=== PATIENT | male | born 1945 | race Caucasian/White ===

== ENCOUNTER 2023-12-01 23:43 | Inpatient (IN) | payer MEDICARE, OTHER, SELFPAY ==
[2023-12-01 19:07] VITALS: BP 154/70; BMI 31.5
--- NOTE | 2023-12-01 20:08 | ED.GENMED ---
History of Present Illness
General
Chief Complaint: Extremity Pain (non-traumatic)
Source: patient
Exam Limitations: none
Time Seen by Provider: 12/01/23 19:32
Travel History
Have you had any contact with someone who has COVID-19?: No
Do you have any symptoms of coronavirus? Fever > 100 degrees, chills, cough, shortness of breath, sore throat, loss of taste or smell, muscle aches, or headache?: No
History of Present Illness
History of Present Illness:
78-year-old male complaining of right arm pain and swelling and left leg swelling. Symptoms started 3 to 4 days ago patient was seen by orthopedics who thought it was arthritis in the shoulder. Seen by dermatology today who started Levaquin.
However patient's daughter is a meat and seafood clerk and after evaluating this was concerned that this might need IV antibiotics and was concerned about a septic arthritis. No fever some chills recently
Past History
Past History
ED Past Medical History: HTN and Hypothyroidism
ED Past Surgical History: Orthopedic and Other (Parathyroid surgery)
Social History
Tobacco: Non-smoker
Alcohol: None
Drug: None
Living: with family
Employment: Other (Part-time)
Review of Systems
Review of Systems
All Other Systems: Not applicable
Constitutional: Reports chills; Denies fever
Respiratory: Reports trouble breathing; Denies cough
Cardiac: Reports no symptoms
ABD/GI: Reports no symptoms
Phy Exam
Physical Exam
Physical Exam:
GENERAL: Alert and oriented in no apparent distress, but minimally tachypneic at rest
EYE: Orbits normal.
NECK: Supple, no significant adenopathy.
ENT: Pharynx without erythema
CARDIAC: Regular rate and rhythm without any obvious murmurs.
LUNGS: Clear breath sounds, however minimally tachypneic at rest
ABDOMEN: Soft, without focal tenderness or distention
NEUROLOGICAL: Alert and oriented , grossly non-focal
SKIN: Warm and dry, mild erythematous hue to the right biceps with mild warmth. Erythema of the left lower extremity greatest near the left first toe. Chronic hyperkeratosis of the left lower extremity
MUSCULOSKELETAL: Significant edema to the left lower extremity and moderate edema to the right arm down and including the hand. Good distal pulses. Does not appear to have pain with right shoulder movement or right elbow movement. Tenderness is
to the right biceps area
PSYCH: Normal and appropriate interaction.
Course
Orders/Labs/Results
Orders:
Orders
12/01/23 19:47
IV Insert/Care/Rem.- Treatment PRN
Pulse Ox/cont/shift [RESP] Urgent
Quantity: 1
12/01/23 19:49
CXR2 [CR Chest - 2 Views ] Urgent
Comment:
Reason For Exam: sob
US Periph Venous LOWER Ext LT Urgent
Comment:
Reason For Exam: swelling redness
US Periph Venous UPPER Ext RT Urgent
Comment:
Reason For Exam: swelling
12/01/23 19:50
EKG [Electrocardiogram (*1)] Urgent
Reason for Study: Palpitations
EKG- Treatment ONCE
12/01/23 19:54
CPK [Creatine Phosphokinase] Urgent
CRP [C-Reactive Protein] Urgent
Complete Blood Count/With Diff Urgent
Comprehensive Metabolic Panel Urgent
ESR [Erythrocyte Sed Rate] Urgent
Lactic Acid Q4H
Comment: CANCEL 2nd LACTIC ACID IF 1st LACTIC ACID IS LESS THAN 2
Blood Culture Q30M
MARYCHUY Source: Blood/Venous
Specimen Description:
Blood Culture Q30M
MARYCHUY Source: Blood/Venous
Specimen Description:
12/01/23 21:57
Vancomycin [Vancocin] 1,500 mg 0.9% Sodium Chloride [Nss] 20 ml 0.9% Sodium Chloride 250 ml [Nss] 250 ml IV NOW
02/15/24 22:11
Aztreonam [Azactam] 2,000 mg IV NOW STA
12/01/23 22:12
NSS 500mL Bolus over 1 hr 0.9% Sodium Chloride 500 ml [Nss] 500 ml IV BOLUS
12/02/23 00:00
Lactic Acid Q4H
Comment: CANCEL 2nd LACTIC ACID IF 1st LACTIC ACID IS LESS THAN 2
Abnormal Lab Results
12/01/23
19:54
WBC 15.9 H 10^3/uL
(4.8-10.8)
RBC 4.11 L 10^6/uL
(4.70-6.10)
Hct 36.9 L %
(39.0-52.0)
MCH 32.8 H pg
(27.0-31.0)
RDW 14.6 H %
(11.5-14.5)
MPV 11.5 H fL
(7.4-10.4)
Abs Immat Gran (auto) 0.3 H 10^3/uL
(0-0.05)
Absolute Neuts (auto) 13.3 H 10^3/uL
(1.4-6.5)
Absolute Lymphs (auto) 0.5 L 10^3/uL
(1.2-3.4)
Absolute Monos (auto) 1.7 H 10^3/uL
(0.1-0.6)
Immature Gran % 1.7 H %
(0-0.5)
Neutrophils % 83.5 H %
(42.2-75.2)
Lymphocytes % 3.3 L %
(20.5-51.1)
Monocytes % 10.9 H %
(1.7-9.3)
ESR 70 H mm/hour
(0-20)
Sodium 132 L mmol/L
(135-145)
Chloride 94 L mmol/L
(98-107)
BUN 88 H mg/dl
(9-20)
Creatinine 2.2 H mg/dL
(0.7-1.3)
Glucose 172 H mg/dl
(70-99)
Calcium 8.0 L mg/dl
(8.4-10.2)
C-Reactive Protein 244.80 H mg/L
(0.0-10.00)
Total Protein 5.7 L g/dl
(6.3-8.2)
Albumin 2.9 L g/dl
(3.5-5.0)
12/01/23 19:54
12/01/23 19:54
Vital Signs
Initial and Last Documented VS:
Initial Vital Signs
Temp Pulse Resp BP Pulse Ox
98.1 F 92 16 154/70 96
12/01/23 19:07 12/01/23 19:07 12/01/23 19:07 12/01/23 19:07 12/01/23 19:07
Last Documented Vital Signs
Temp Pulse Resp BP Pulse Ox
98.1 F 92 16 154/70 96
12/01/23 19:07 12/01/23 19:07 12/01/23 19:07 12/01/23 19:07 12/01/23 19:07
MDM/Problems Addressed
Differential Diagnosis Includes:
Appears to be a cellulitic right lower extremity. Swelling of the right arm with erythema and warmth. DVT of both areas is also a possibility. Doubt septic arthritis. Workup in progress. Warrants IV antibiotics and admission.
*Radiology
Radiology exam reviewed: preliminary read by ED provider (Elevated left hemidiaphragm) and radiology read reviewed (Elevated left hemidiaphragm. Ultrasounds negative)
*Pulse Oximetry
Patient hypoxic: no
*EKG
Interpreted by ED Provider?: Yes
Interpretation: abnormal
Comparison EKG: changes noted
Heart Rate: 87
Rate: normal
Rhythm: sinus
Luning: normal axis
Interval: normal interval
QRS Pattern: right bundle branch block
Ischemia: non-specific ST changes
*Traffic Manager Interpretation
Rate: normal
Interpretation: normal
Heart Rate: 85
Rhythm: sinus
*Critical Care Note
Total Time (30-74mins, 75-104mins- exclusive of procedures): 35
Data Reviewed
Review of Other/Old Records Reveals: Radiology Studies
Update Note
Update Note:
Daughter updated. Multiple issues including dehydration/renal insufficiency, elevated white count with elevated inflammatory markers. Cellulitis of left lower leg and likely the right arm. Patient was reexamined and again clinically this appears
to be the upper arm more than the shoulder. He has no pain with elbow rotation. He winces with pain and moving the arm but is much more the right bicep and not the shoulder.
ED Attending Note
-
Portions of this chart may have been created with voice recognition software.� Occasional wrong word or��sound alike� substitutions may have occurred due to the inherent limitations of voice recognition software.
Discharge Plan
Departure
Patient Disposition: Admit
Date of Disposition: 12/01/23
Time of Disposition: 22:24
Presentation/result/management discussed w/ accepting MD/DO: Hospitalist
Discharge Problem:
Cellulitis left lower extremity, Cellulitis right upper extremity, Possible myositis right arm. Doubt sept, Renal insufficiency
Prescriptions:
No Action
acetaminophen [Tylenol Extra Strength] 500 mg Tablet
1,000 mg PO BIDPRN PRN (Reason: mild pain)
amlodipine 10 mg Tablet
10 mg PO QPM
levofloxacin 750 mg Tablet
750 mg PO QPM
Patient Comments:
12/01/2023, pt. filled this med. on 12/01/2023 and is instructed to take one tablet once a day for 10 days. Pt. took first dose today and has 9 pills remaining.
valsartan-hydrochlorothiazide 320-12.5 mg Tablet
1 tab PO DAILY
Referrals:
James Larsen MD [Family Provider] -
Interventions
Interventions:
*Risk Screen - Suicide Last Done: 12/01/23 20:03
*General Assessment Last Done: 12/01/23 20:03
*Neglect/Abuse Screening Last Done: 12/01/23 19:07
ED- Fall Risk Assessment Last Done: 12/01/23 20:03
*ED COVID-19 Vaccine History Last Done: 12/01/23 19:07
ED-Peripheral Vascular Assessment Last Done: 12/01/23 20:03
ED-Musculoskeletal Assessment Last Done: 12/01/23 20:03
[2023-12-01 20:40] LABS: % Basophils 0.6 % (0-2); % Immature Granulocytes 1.7 % (0-0.5); % Lymphocytes 3.3 % (20.5-51.1); % Monocytes 10.9 % (1.7-9.3); % Neutrophils 83.5 % (42.2-75.2); Absolute Basophils 0.1 10^3/uL (0-0.2); Absolute Immature Granulocytes 0.3 10^3/uL (0-0.05); Absolute Lymphocytes 0.5 10^3/uL (1.2-3.4); Absolute Monocytes 1.7 10^3/uL (0.1-0.6); Absolute Neutrophils 13.3 10^3/uL (1.4-6.5); Hematocrit 36.9 % (39.0-52.0); Hemoglobin 13.5 g/dL (13.0-18.0); Mean Corp Hgb Conc. 36.6 g/dL (33.0-37.0); Mean Corpuscular Hgb 32.8 pg (27.0-31.0); Mean Corpuscular Volume 89.8 fL (80.0-94.0); Mean Platelet Volume 11.5 fL (7.4-10.4); Nucleated Red Blood Cells % 0 % (-); Platelet Count 202 10^3/uL (130-400); Red Blood Cell Count 4.11 10^6/uL (4.70-6.10); Red Cell Dist. Width 14.6 % (11.5-14.5); White Blood Cell Count 15.9 10^3/uL (4.8-10.8)
[2023-12-01 20:51] LABS: Erythrocyte Sed Rate 70 mm/hour (0-20)
[2023-12-01 20:54] LABS: Lactic Acid 1.5 mmol/L (0.7-2.0)
[2023-12-01 21:03] LABS: ALT (SGPT) 31 U/L (0-50); AST (SGOT) 49 U/L (17-59); Albumin 2.9 g/dl (3.5-5.0); Alkaline Phosphatase 80 U/L (38-126); Blood Urea Nitrogen 88 mg/dl (9-20); Carbon Dioxide 25 mmol/L (22-30); Chloride 94 mmol/L (98-107); Estimated Creatinine Clearance 30 ml/min; Glucose 172 mg/dl (70-99); Potassium 3.5 mmol/L (3.5-5.1); Sodium 132 mmol/L (135-145); Total Bilirubin 0.8 mg/dl (0.2-1.3); Total Protein 5.7 g/dl (6.3-8.2); eGFR 29.54
[2023-12-01 21:33] LABS: Creatine Phosphokinase 139 U/L (55-170)
[2023-12-01 22:01] VITALS: BP 125/65
--- NOTE | 2023-12-01 22:15 | HPS.HSE ---
Family Physician
-
Family Physician: James Larsen
Chief Complaint
-
right arm pain and swelling
History of Present Illness
Mr. Ming Gunter is a 78 yo man with hx HTN, Hypothyroidism who presents to the ER with right arm pain and left leg swelling and pain. Patient states his left leg has been red, warm and swollen x almost a week. Tuesday night he went out and
after he returned home he describes severe shakiness/rigors. No rigors since this evening but the following morning he had severe right arm pain and near immobility of right arm. Pain is located along biceps muscle. He saw orthopedics who
injected a steroid into right shoulder. He also saw Dermatology who prescribed Levaquin for the cellulitis. Patient's shutzsto-rz-luh is a inspector and unloader and was worried about a septic joint so sent him to the ER.
Patient denies measured fevers at home. He has been taking advil and tylenol ATC for pain. Denies chest pain, no shortness of breath. No abdominal pain. No nausea/vomiting/diarrhea and no poor appetite.
Medical History
Past Medical History
Past Medical History: Reports HTN and Hypothyroidism
Past Surgical History: Reports Other
Social History
Tobacco: Non-smoker
Alcohol: None
Family History
Family History: Not pertinent
Allergies / Home Medications
Allergies reflects when Allergies were last updated in [facility].
Home Medications with original date entered in [facility]
Allergy/Medication List:
Allergies
Allergy/AdvReac Type Severity Reaction Status Date / Time
Penicillins Allergy Severe Rash Verified 12/01/23 19:12
Home Medications
acetaminophen 500 mg tablet (Tylenol Extra Strength) 1,000 mg PO BIDPRN PRN mild pain 12/01/23
amlodipine 10 mg tablet 10 mg PO QPM 12/01/23
levofloxacin 750 mg tablet 750 mg PO QPM 12/01/23
valsartan 320 mg-hydrochlorothiazide 12.5 mg tablet 1 tab PO DAILY 12/01/23
Review of Systems
-
History Source: Patient
A 12 point ROS was completed and negative except as noted: Yes
Physical Exam
Vital Signs
Vital Signs
Temp Pulse Resp BP Pulse Ox
98.1 F 92 16 154/70 96
12/01/23 19:07 12/01/23 19:07 12/01/23 19:07 12/01/23 19:07 12/01/23 19:07
Physical Exam
General: No Apparent Distress and Conversant
HEENT: PERRLA
Respiratory: Clear; No Wheezes
Cardiac: S1/S2 and Regular Rhythm
GI: Soft and Non Tender
Musculoskeletal: Other (LLE with significant warmth and erythema; swelling up to below knee; right biceps with point tenderness; can slowly flex elbow and shoulder although limited 2/2 pain in bicep - area mildly erythematous not warm)
Skin: Warm and Dry; No Rash
Neuro: AO x 3
Psych: Calm
Laboratory Results
-
12/01/23 19:54
12/01/23 19:54
Laboratory Results
Lactic Acid 1.5 mmol/L (0.7-2.0) 12/01/23 19:54
Total Bilirubin 0.8 mg/dl (0.2-1.3) 12/01/23 19:54
AST 49 U/L (17-59) 12/01/23 19:54
ALT 31 U/L (0-50) 12/01/23 19:54
Alkaline Phosphatase 80 U/L (38-126) 12/01/23 19:54
Data Reviewed
-
Diagnostic Radiology: Report Reviewed by me
Lab Data: Labs Reviewed by me
Impression/Plan
-
Mr. Ming Gunter is a 78 yo man with hx HTN, Hypothyroidism who presents to the ER with right arm and left leg swelling.
Triage VS: T 98.1, P 92 RR 16, BP 154/70, SpO2 96%
LABS: WBC 15.9, Hg 13.5, PLT 202, Na 132, Cl 94, BUN 88, Cr 2.2, Glucose 172
CRP 244
LLE US
IMPRESSION: No evidence of deep venous thrombosis left lower extremity.
Two morphologically unremarkable appearing left groin lymph nodes, as detailed above.
RUE US
IMPRESSION:
No evidence of deep venous thrombosis of the right upper extremity.
CXR
IMPRESSION:
Low lung volumes.
Elevation of left hemidiaphragm.
No acute cardiopulmonary process.
MAR: IV Vanc/Aztreonam
Sepsis 2/2 LLE Cellulitis
-admit to med/surg
-IV Vanc/Cefazolin
-LLE leg elevation
-would repeat CRP and ESR in 48 hours given significant elevation. No e/o septic joint (no significant knee pain or tenderness; no shoulder or elbow tenderness to palpation)
-F/U blood cultures
-IVF
Right arm pain - point tenderness along biceps
-possible that patient injured muscle during period of uncontrollable rigors described? (given pain started next morning). area does not appear infected
-will obtain x-rays of shoulder and elbow given immobility
-lidocaine patch to area
-ortho consult - need for further imaging?
LONDON on CKD III
-in setting of frequent NSAID use and valsartan/HCTZ + sepsis
-IVF as above
-hold NSAIDs
-F/U UA and urine studies
-hold MATE CHIEF Valsartan/HCTZ
Essential HTN
-MATE CHIEF amlodipine
-hold MATE CHIEF Valsartan-HCTZ given LONDON
DVT PPx hep subQ
FULL CODE
[2023-12-01] MEDS: VANCOCIN 300 MG IV (22:16)
[2023-12-01] MEDS: VANCOCIN 300 ML IV (22:16)
[2023-12-01] MEDS: NSS 500 IV (22:21)
[2023-12-01 23:00] VITALS: BP 125/64
[2023-12-02 00:41] LABS: Urine Albumin Negative (Neg - Trace); Urine Bilirubin Negative (Negative); Urine Character Clear (Clear); Urine Color Yellow; Urine Glucose Negative (Negative); Urine Ketone Negative (Negative); Urine Leukocyte Negative (Negative); Urine Nitrite Negative (Negative); Urine Occult Blood Negative (Negative); Urine Urobilinogen Negative (Neg - 1+)
[2023-12-02 00:55] VITALS: BP 147/90
[2023-12-02 00:58] LABS: Urine Sodium 30 mmol/L (30-90)
[2023-12-02] MEDS: ANCEF 10 IV ×3 (01:07→23:43)
[2023-12-02] MEDS: LR 1000 IV ×3 (02:14→23:43)
[2023-12-02 05:36] VITALS: BMI 32.4
[2023-12-02 06:16] LABS: % Basophils 0.4 % (0-2); % Immature Granulocytes 1.9 % (0-0.5); % Monocytes 13.1 % (1.7-9.3); % Neutrophils 80.6 % (42.2-75.2); Absolute Basophils 0.1 10^3/uL (0-0.2); Absolute Immature Granulocytes 0.3 10^3/uL (0-0.05); Absolute Lymphocytes 0.6 10^3/uL (1.2-3.4); Absolute Monocytes 1.9 10^3/uL (0.1-0.6); Absolute Neutrophils 11.7 10^3/uL (1.4-6.5); Hematocrit 33.9 % (39.0-52.0); Hemoglobin 12.4 g/dL (13.0-18.0); Mean Corp Hgb Conc. 36.6 g/dL (33.0-37.0); Mean Corpuscular Hgb 33.1 pg (27.0-31.0); Mean Corpuscular Volume 90.4 fL (80.0-94.0); Mean Platelet Volume 11.3 fL (7.4-10.4); Nucleated Red Blood Cells % 0 % (-); Platelet Count 181 10^3/uL (130-400); Red Blood Cell Count 3.75 10^6/uL (4.70-6.10); Red Cell Dist. Width 14.5 % (11.5-14.5); White Blood Cell Count 14.5 10^3/uL (4.8-10.8)
[2023-12-02 06:45] LABS: Blood Urea Nitrogen 87 mg/dl (9-20); Calcium 7.7 mg/dl (8.4-10.2); Carbon Dioxide 23 mmol/L (22-30); Chloride 99 mmol/L (98-107); Estimated Creatinine Clearance 35 ml/min; Glucose 176 mg/dl (70-99); Magnesium 2.6 mg/dl (1.6-2.3); Potassium 3.5 mmol/L (3.5-5.1); Sodium 134 mmol/L (135-145); eGFR 35.22
[2023-12-02 07:20] VITALS: BP 155/88
--- NOTE | 2023-12-02 07:45 | PHA.VAN.IN ---
Assessment
- Assessment
Renal Function: Unknown baseline
Concomitant Antimicrobials: cefazolin
Plan
- Plan
Initial / Loading Dose: 1500mg - 12/01 22:16
Maintenance Regimen: dosing by level - give 750mg x1 today to maintain levels
Monitoring: random 12/03 0600
Pharmacokinetics Vancomycin I
- -
Patient Age: 78
Patient Sex: Male
Vancomycin Day #: 1
Indication: Skin And Soft Tissue
Requesting Provider: Dr. Brooks
Pertinent Antimicrobial Allergies:
Penicillins - rash
Height / Weight:
Height 5 ft 8 in
Actual Weight 96.757 kg
Pertinent Past Medical History: BMI ~32
- Vital Signs / Lab Results
Temp Pulse Resp BP Pulse Ox
97.7 F 93 16 147/90 96
12/02/23 00:55 12/02/23 00:55 12/02/23 00:55 12/02/23 00:55 12/02/23 00:55
Lab Results - Hematology
12/01/23 12/02/23
19:54 05:51
WBC 15.9 H 14.5 H
Lab Results - Chemistry
12/01/23 12/02/23
19:54 05:51
BUN 88 H 87 H
Creatinine 2.2 H 1.9 H
Estimated Creat Clear 30 35
Albumin 2.9 L
12/01/23
19:54
Lactic Acid 1.5
Lab Results - Urine
12/02/23
00:25
Urine Nitrite Cancelled
Urine Nitrite (Reflex) Negative
Ur Leukocyte Esterase Cancelled
Leukocyte Esterase Rfl Negative
[2023-12-02] MEDS: VANCOCIN 150 IV (09:18)
[2023-12-02] MEDS: LIDOCAINE 4% PATCH 1 PATCH TOPICAL ×2 (09:23→12:26)
--- NOTE | 2023-12-02 10:41 | CON.ORTHO ---
Consultation
-
Date/Time Consultation Requested: 12/02/2023 830 AM
Date/Time Consultation Performed: 12/02/2023 10 AM
Requesting Provider: Primary
Performing Provider: Any
Reason for Consultation: Right arm pain
Consultation - Orthopedics
History
HPI :78-year-old male presented to the the [facility] emergency department with complaints of right arm pain as well as left lower extremity swelling erythema. Patient does have a known history of right glenohumeral osteoarthritis. He reports that last
weekend he developed some chills without associated fevers. He did note some rigors that he thinks exacerbated his right shoulder pain. On Tuesday he was seen by his orthopedist who did perform an intra-articular right glenohumeral corticosteroid
injection. He reports that after the injection he did experience worsening shoulder pain. He was subsequently seen by his junior sales representative for left lower extremity redness and swelling that has been ongoing since September. Patient was placed on
Levaquin. He does report that his peyylzge-nu-aib is a pot room tapper and suggested that he present to the emergency department for IV antibiotics. Today patient reports pain well localized to the lateral aspect of his shoulder and upper arm. He
does note some redness more distally upper extremity some associated swelling that he does think is actually improved since starting IV antibiotics. Pain is made worse with any motion of his right shoulder and really has significant difficulty with
any motion particularly forward flexion of his shoulder. Reports that previous shoulder pain has never been this severe. Denies any fevers at home.
Allergies / Home Medications
Past medical history: Hypertension, hypothyroidism
Past surgical history: Orthopedic, parathyroid surgery
Family history: Not pertinent
Social history: Smoker, non-smoker
Allergy/AdvReac Type Severity Reaction Status Date / Time
Penicillins Allergy Rash Verified 12/01/23 23:17
Medication Instructions Recorded
acetaminophen 500 mg tablet 1,000 mg PO BIDPRN PRN mild pain 12/01/23
(Tylenol Extra Strength)
amlodipine 10 mg tablet 10 mg PO QPM Blood Pressure 12/01/23
calcium 100 mg capsule mg PO Supplement 12/01/23
levofloxacin 750 mg tablet 750 mg PO QPM Infection 12/01/23
valsartan 320 1 tab PO DAILY Blood Pressure 12/01/23
mg-hydrochlorothiazide 12.5 mg
tablet
Vital Signs / Lab Results
Temp Pulse Resp BP Pulse Ox
98.2 F 87 18 155/88 95
12/02/23 07:20 12/02/23 07:20 12/02/23 07:20 12/02/23 07:20 12/02/23 10:04
12/02/23 05:51
12/02/23 05:51
10 point review systems reviewed and negative unless otherwise stated
General: Seated comfortably in chair at rest, no visible discomfort at rest
Musculoskeletal right upper extremity
There is some mild erythematous skin changes over the antecubital fossa with some associated mild to moderate swelling throughout his right upper extremity
No tenderness palpation of antecubital fossa
Significant tenderness to palpation over proximal arm and shoulder
Significant pain with any attempted passive motion both forward flexion external rotation of shoulder
Unable to actively forward flex or externally rotate without significant pain
Sensations intact light touch in all dispositions distally
Brisk cap refill
Diagnostic studies
X-rays of right shoulder reviewed show significant joint space narrowing, humeral head osteophyte formation with associated subchondral sclerosis glenohumeral joint space. X-rays of right elbow show no fracture dislocations. Negative posterior fat
pad sign
Assessment / Plan
78-year-old male with atraumatic onset right shoulder pain in setting of known right glenohumeral osteoarthritis. Does report that his symptoms actually worsened quite significantly following his corticosteroid injection on Tuesday. Patient is not
complaining of any pain clinically in the area of his elbow today. I would have concerns about potentially ruling out right shoulder septic arthritis given his elevated inflammatory markers as well as his clinical examination and the fact that his
symptoms worsened following recent injection right shoulder. Would recommend obtaining ultrasound-guided evaluation of the right shoulder to evaluate for effusion with aspiration if indicated with synovial fluid analysis hopefully synovial fluid
analysis would help us rule out a septic joint. Will plan to reach out to interventional radiology and discuss further with primary team. IV antibiotics for cellulitis per primary team/infectious disease recommendations.
--- NOTE | 2023-12-02 10:45 | W.PN.HOSP.TC ---
Today's Communication/Plan
-
see outlined plan
Assessment / Plan
Assessment / Plan
Assessment:
Sepsis POA
RUE cellulitis, possible septic R shoulder joint
Also LLE cellulitis, chronic xerosis
- CRP elevated; will trend
- recent CS injection on Tuesday at R shoulder
- ortho evaluated, d/w IR and for joint aspiration/cultures today
- ID consult
- continue IV Vanco/Ancef and follow cultures
- for LLE: elevate legs
- wound care evaluation
- was prescribed Clobetasol (+ Levaquin) for LLE cellulitis by derm, hold off with active infection until cleared by ID/Wound care. May benefit from Aquaphor
- pain control; lidocaine patches, prn tramadol
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
- likely from heavy NSAID usage outpatient
- hold nephrotoxins
- continue IVF
- monitor Cr
Essential HTN
- continue CCB
- hold ARB/HCTZ; use BB if needed
DVT ppx: SC Heparin
Code: Full
Anticipated Discharge: > 48 hours
Subjective/Interval History
-
Date of Service: December 02, 2023
reports arm pain, swelling
no fever/chills
Objective Data
-
Labs:
Laboratory Results
12/02/23
05:51
WBC 14.5 H
Hgb 12.4 L
Hct 33.9 L
Plt Count 181
Sodium 134 L
Potassium 3.5
Chloride 99
Carbon Dioxide 23
BUN 87 H
Creatinine 1.9 H
Glucose 176 H
Calcium 7.7 L
Vital Signs:
Vital Signs
Temp Pulse Resp BP Pulse Ox
98.2 F 87 18 155/88 95
12/02/23 07:20 12/02/23 07:20 12/02/23 07:20 12/02/23 07:20 12/02/23 10:04
I&O
12/01/23 12/02/23 12/03/23
06:59 06:59 06:59
Intake Total 600 / 600
Output Total 750 / 750
Balance -150 / -150
Physical Exam
-
General: No Apparent Distress
HEENT: Normocephalic and Atraumatic
Respiratory: Negative Wheezes or Rales
Cardiac: Regular Rhythm and S1/S2
GI: Soft
Genito-urinary: No Costovertebral Tender
Musculoskeletal: Other (RUE arm pain, swelling, redness, limited ROM in R shoulder)
Neuro: AO x 3
Psych: Calm
Data Reviewed
-
Total Time Spent with Patient (in minutes): 45
Labs: Labs Reviewed by me
[2023-12-02 11:00] VITALS: BP 132/66
--- NOTE | 2023-12-02 11:18 | CM ---
Reviewed the chart notes and spoke with the patient at the bedside. The patient resides with his spouse in a condo with elevator access to all floors. The patient reports no DME/VN/SNF in the past. The patient confirmed his pharmacy of choice is
the [facility]. CM continues to be available to patient/family and is monitoring medical plan for needs at discharge.
Plan: Discharge plans will depend on the patient's progress.
--- NOTE | 2023-12-02 11:58 | WOUNDNOTE ---
LLE (ANTERIOR LATERAL)
--- NOTE | 2023-12-02 11:59 | WOUNDNOTE ---
LLE (ANTERIOR MEDIAL)
--- NOTE | 2023-12-02 12:00 | WOUNDNOTE ---
[facility] RN note: Patient admitted with extremity pain, LONDON, R arm pain, LLE swelling and pain. Patient had a recent steroid injection RUE and recently saw derm who ordered Levaquin for LLE cellulitis.
See H&P for complete history.
PMH: CKD3, HTN, osteoarthritis, venous stasis.
Wound Location and type/assessment: Patient admitted with: Dry scaly skin Le's (L>R), skin about to weep at L medial anterior ankle area. +LE edema (L>R). Pedal pulses heard easily with portable Doppler. LLE venous Doppler negative for DVT. RUQ
venous Doppler negative for DVT. Coccyx crease MASD. ID, Ortho and IR on consult.
Appetite: good.
Pressure redistribution devices in place: [employer] Accumax. Patient moves self slowly.
Plan: Cleansed LLE with saline and applied Vaseline to dry skin le's. Discussed with Dr. Dixon who approved Aquaphor ointment and bilateral knee high compression with Tubigrip with Mando wrap on top. Dr. Dixon to apply compression after seeing
patient. Supplies left in room. Discussed with EDDY Huynh.
Care plan to be updated and will follow as needed.
Note to case management of equipment requested for discharge: VN if patient wants.
--- NOTE | 2023-12-02 13:43 | CON.ID ---
Consultation
-
Date/Time Consultation Requested: 12/02/2023 07:37
Date/Time Consultation Performed: 12/02/2023 1320
Requesting Provider: Dr. Armando
Performing Provider: Dr. Dixon
Reason for Consultation: Cellulitis, leukocytosis
Chief Complaint / Past History
History of Present Illness
Ming Gunter is an 78-year-old man being evaluated at the request of Dr. Armando in regards to cellulitis and leukocytosis. History is obtained from chart review, along with patient interview. The patient reports that he has had several weeks of
lower extremity swelling, but seem to increase markedly over the past week. He reports approximately 6 days ago he developed the acute onset of chills and rigors. The following day he felt improved but extremely fatigued. He was in to see his
orthopedist approximately 4 days ago and because of concerns for osteoarthritis of the right shoulder joint, he received a steroid injection. Following this he had ongoing pain and swelling of the arm, along with ongoing swelling of the left leg.
He was seen by his Gun Stock Checker, who placed him on ofloxacin. His daughter who is a learning support aide saw him, was concerned that there was a deeper seeded infection and advised coming to the emergency room.
Patient denies any fevers during this time period. He has had no chills since earlier in the week. Currently he notes marked pain with any movement of the right upper extremity, especially in the bicep area.
Past History
Additional Past Medical History:
HTN
Hypothyroidism
Vocal cord cancer
Additional Past Surgical History:
Wrist surgery
Vocal cord surgery
Allergy History:
- Penicillins Allergy (Verified 12/01/23 23:17)
?Rash. Has tolerated amoxicillin and Keflex without issue.
Medications Reviewed: Yes
Current Antibiotics:
Vancomycin
Cefazolin
Social History
Tobacco: Non-Smoker
Alcohol: None
Drug: None
Living: With Family
Employment: Employed
Review of Systems
Vital Signs
Temp Pulse Resp BP Pulse Ox
98.2 F 87 18 155/88 95
12/02/23 07:20 12/02/23 07:20 12/02/23 07:20 12/02/23 07:20 12/02/23 10:04
Physical Exam
Physical Exam
Constitutional: No Acute Distress, Comfortable and Non-toxic
Eyes: No Conjunctival Hemorrhage and Sclera Anicteric
Oral: No Thrush and No Ulcers
Cardiovascular: S1/S2; Negative S3/S4 or Murmur
Pulmonary: Non Labored
Gastrointestinal: Soft, Non Tender, Non Distended and Normal Bowel Sounds
Genito-Urinary: Negative West
Extremities: Edema (Right upper extremity, shoulder to mid forearm, with noted tenderness in the upper arm area. Mild erythema noted. Also with 4+ edema of the left lower extremity, 3+ edema of the right lower extremity) and Erythema
Neurological: Awake and Alert
Psychological: Calm
.
Lab / Diagnostic Study Results
12/02/23 05:51
12/02/23 05:51
Abs Immat Gran (auto) 0.3 10^3/uL (0-0.05) H 12/02/23 05:51
Absolute Neuts (auto) 11.7 10^3/uL (1.4-6.5) H 12/02/23 05:51
Absolute Lymphs (auto) 0.6 10^3/uL (1.2-3.4) L 12/02/23 05:51
Absolute Monos (auto) 1.9 10^3/uL (0.1-0.6) H 12/02/23 05:51
Absolute Basos (auto) 0.1 10^3/uL (0-0.2) 12/02/23 05:51
Immature Gran % 1.9 % (0-0.5) H 12/02/23 05:51
Neutrophils % 80.6 % (42.2-75.2) H 12/02/23 05:51
Lymphocytes % 4.0 % (20.5-51.1) L 12/02/23 05:51
Monocytes % 13.1 % (1.7-9.3) H 12/02/23 05:51
Eosinophils % 0.0 % (0-6) 12/02/23 05:51
Basophils % 0.4 % (0-2) 12/02/23 05:51
ESR 70 mm/hour (0-20) H 12/01/23 19:54
Lactic Acid 1.5 mmol/L (0.7-2.0) 12/01/23 19:54
C-Reactive Protein 244.80 mg/L (0.0-10.00) H 12/01/23 19:54
Microbiology Results
Micro:
12/01/23 19:54 Blood Culture - Pending
Blood/Venous
12/01/23 19:54 Blood Culture - Pending
Blood/Venous
Imaging:
12/01/2023 Duplex ultrasound left lower extremity, right upper extremity: No evidence of DVT noted.
Assessment / Plan
Right upper extremity pain, swelling; ?cellulitis and/or myositis
Leukocytosis
Severe left lower extremity edema +/- cellulitis
Renal insufficiency
HTN
Hypothyroidism
Vocal cord cancer
Recommendations:
Continue with vancomycin and cefazolin for the present.
Follow white count and temperature curve.
Follow right upper extremity swelling and degree of pain.
Depending on clinical course, may need additional imaging (i.e. CT VS MRI), especially if pain and swelling persist.
Care Review
Plan reviewed with: Physician (Hospitalist)
[2023-12-02 15:22] VITALS: BP 149/81
--- NOTE | 2023-12-02 16:42 | PTCARENOTE ---
pt sent to [facility] via stretcher to have fluid drawn from R shoulder. pt sent with LR going at 100ml/hr. this nurse applied b/l tubi supercharger mechanic E and F as well as cammie wraps prior to patient going down to [facility]. pt and updated on patient plan at this time
[2023-12-02 16:45] VITALS: BP 155/73; BP_SYST 83
[2023-12-02] MEDS: NORVASC 10 MG PO (18:18)
[2023-12-02] MEDS: HEPARIN 5000 UNITS SC (20:57)
[2023-12-02] MEDS: DESENEX/MITRAZOL/ZEASORB 1 APPLIC TOPICAL (20:57)
[2023-12-02 23:25] VITALS: BP 132/66
[2023-12-03] MEDS: TYLENOL 650 MG PO (02:49)
[2023-12-03 07:53] VITALS: BP 149/71
[2023-12-03] MEDS: LIDOCAINE 4% PATCH 1 PATCH TOPICAL (08:10)
[2023-12-03] MEDS: HEPARIN 5000 UNITS SC ×2 (08:11→20:16)
[2023-12-03] MEDS: LR 1000 IV (08:14)
[2023-12-03] MEDS: HYDROPHOR 1 APPLIC TOPICAL (08:22)
[2023-12-03] MEDS: DESENEX/MITRAZOL/ZEASORB 1 APPLIC TOPICAL ×2 (08:22→20:19)
[2023-12-03 08:32] LABS: % Basophils 0.4 % (0-2); % Immature Granulocytes 3.2 % (0-0.5); % Lymphocytes 6.1 % (20.5-51.1); % Neutrophils 79.3 % (42.2-75.2); Absolute Basophils 0.1 10^3/uL (0-0.2); Absolute Immature Granulocytes 0.4 10^3/uL (0-0.05); Absolute Lymphocytes 0.7 10^3/uL (1.2-3.4); Absolute Monocytes 1.3 10^3/uL (0.1-0.6); Absolute Neutrophils 9.6 10^3/uL (1.4-6.5); Hematocrit 36.4 % (39.0-52.0); Hemoglobin 12.9 g/dL (13.0-18.0); Mean Corp Hgb Conc. 35.4 g/dL (33.0-37.0); Mean Corpuscular Hgb 32.7 pg (27.0-31.0); Mean Corpuscular Volume 92.2 fL (80.0-94.0); Mean Platelet Volume 10.9 fL (7.4-10.4); Nucleated Red Blood Cells % 0 % (-); Platelet Count 191 10^3/uL (130-400); Red Blood Cell Count 3.95 10^6/uL (4.70-6.10); Red Cell Dist. Width 14.4 % (11.5-14.5); White Blood Cell Count 12.1 10^3/uL (4.8-10.8)
[2023-12-03 08:48] LABS: Blood Urea Nitrogen 70 mg/dl (9-20); Carbon Dioxide 24 mmol/L (22-30); Chloride 102 mmol/L (98-107); Estimated Creatinine Clearance 44 ml/min; Glucose 146 mg/dl (70-99); Potassium 3.9 mmol/L (3.5-5.1); Sodium 137 mmol/L (135-145); eGFR 46.77
--- NOTE | 2023-12-03 09:11 | W.PN.ID1 ---
Date of Service
Date of Service: December 03, 2023
Today's Communication
Continue antibiotics. Check MRI
Assessment / Plan
Right upper extremity pain, swelling; ?cellulitis and/or myositis
Leukocytosis
Severe left lower extremity edema
Renal insufficiency
HTN
Hypothyroidism
Vocal cord cancer
Recommendations:
Continue with vancomycin and cefazolin for the present.
Follow white count and temperature curve.
Follow right upper extremity swelling and degree of pain.
Given ongoing pain, would recommend MRI of the shoulder and upper arm.
����������������������������������������������������������
Chief Complaint
-: Cellulitis
Subjective / Review of Systems
Patient seen and examined. Reports ongoing right upper extremity discomfort/pain, finding it difficult to even move his arm. He localizes pain to the bicep area. No fevers or chills.
Review of Systems: No Fever and No Chills
Vital Signs / Physical Exam
Vital Signs
Vital Signs
Temp Pulse Resp BP Pulse Ox
98.5 F 83 16 149/71 98
12/03/23 07:53 12/03/23 07:53 12/03/23 07:53 12/03/23 07:53 12/03/23 07:53
Physical Exam
Constitutional: No Acute Distress, Comfortable and Non-toxic
Cardiovascular: S1/S2; Negative S3/S4
Pulmonary: Non Labored
Gastrointestinal: Soft
Extremities: Edema (Left upper extremity) and Erythema (Right upper extremity; minimal)
Musculoskeletal: Negative Joint Swelling
Neurological: Awake, Alert and Oriented
Objective Data
Lab Data
Lab Results
12/03/23 07:41
12/03/23 07:41
ESR 70 mm/hour (0-20) H 12/01/23 19:54
Estimated Creat Clear 44 ml/min 02/17/24 07:41
Lactic Acid 1.5 mmol/L (0.7-2.0) 12/01/23 19:54
Total Bilirubin 0.8 mg/dl (0.2-1.3) 12/01/23 19:54
AST 49 U/L (17-59) 12/01/23 19:54
ALT 31 U/L (0-50) 12/01/23 19:54
Alkaline Phosphatase 80 U/L (38-126) 12/01/23 19:54
C-Reactive Protein 244.80 mg/L (0.0-10.00) H 12/01/23 19:54
Most recent labs reviewed.
Micro Results:
12/01/23 19:54 Blood Culture - Preliminary
Blood/Venous No Growth in 24 hours- Final report to follow
12/01/23 19:54 Blood Culture - Preliminary
Blood/Venous No Growth in 24 hours- Final report to follow
12/02/23 17:31 Body Fluid Culture - Pending
Joint Fluid Gram Stain - Preliminary
Imaging:
12/01/2023 Duplex ultrasound left lower extremity, right upper extremity: No evidence of DVT noted.
Care Review
Plan reviewed with: Physician (Hospitalist)
[2023-12-03 09:28] LABS: Vancomycin Random 7.9 ug/ml
--- NOTE | 2023-12-03 11:16 | W.PN.HOSP.TC ---
Today's Communication/Plan
-
MRI today d/w ID and ortho
updated family
Assessment / Plan
Assessment / Plan
Assessment:
Sepsis POA
RUE cellulitis, possible septic R shoulder joint vs R biceps myositis vs abscess
- recent CS injection on Tuesday at R shoulder
- CRP/ESR elevated; will trend
- ortho following
- s/p IR shoulder aspiration on 12/02. Follow GS/Cx
- ID following
- continue IV Vanco/Ancef and follow cultures
- given persistence of symptoms, check MRI study w contrast
- pain control; lidocaine patches, prn tramadol
Also LLE cellulitis, chronic xerosis
- ID/wound care following
- continue IV Vanco/Ancef and follow cultures
- continue Aquaphor
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
- likely from heavy NSAID usage outpatient
- hold nephrotoxins
- continue IVF
- monitor Cr, down to 1.5
Essential HTN
- continue CCB
- hold ARB/HCTZ; use BB if needed
DVT ppx: SC Heparin
Code: Full
Anticipated Discharge: > 48 hours
Subjective/Interval History
-
Date of Service: December 03, 2023
reports ongoing pain, 06/26, with movement of shoulder which remains swollen
no fevers/chills
Objective Data
-
Labs:
Laboratory Results
12/03/23
07:41
WBC 12.1 H
Hgb 12.9 L
Hct 36.4 L
Plt Count 191
Sodium 137
Potassium 3.9
Chloride 102
Carbon Dioxide 24
BUN 70 H
Creatinine 1.5 H
Glucose 146 H
Calcium 8.0 L
Vital Signs:
Vital Signs
Temp Pulse Resp BP Pulse Ox
98.5 F 83 16 149/71 98
12/03/23 07:53 12/03/23 07:53 12/03/23 07:53 12/03/23 07:53 12/03/23 07:53
I&O
12/02/23 12/03/23 12/04/23
06:59 06:59 06:59
Intake Total 600 / 600 3590 / 3590
Output Total 750 / 750 2150 / 2150
Balance -150 / -150 1440 / 1440
Physical Exam
-
General: No Apparent Distress
HEENT: Normocephalic and Atraumatic
Respiratory: Negative Wheezes
Cardiac: Regular Rhythm and S1/S2
GI: Soft
Musculoskeletal: Other (RUE swelling/edema along biceps)
Neuro: AO x 3
Hematologic / Lymphatic: No Lymphadenopathy
Psych: Calm
Data Reviewed
-
Total Time Spent with Patient (in minutes): 45
Labs: Labs Reviewed by me
[2023-12-03] MEDS: ANCEF 10 IV ×2 (12:00→23:00)
--- NOTE | 2023-12-03 12:16 | W.PN.ORTHO ---
Today's Communication / Plan
-
78 yo M history of significant right glenohumeral OA, known rotator cuff tear with recent onset of atraumatic right shoulder pain and evidence of right upper extremity and left lower extremity cellulitis
Patient underwent right shoulder US guided aspiration GH joint. Reportedly very little fluid, only 2 cc was sent for synovial fluid analysis. IT does not look like there was enough to send for cell count, gram stain preliminarily is negative,
cultures pending. Less likely septic right shoulder without larger effusion, but will follow synovial fluid results. Patient to get MRI today to evaluate for potential abscess/signs of infection.
NWB RUE, consider sling for comfort
Pain control
antibiotics per primary team/ID recommendations
f/u MRI shoulder
f/u final aspiration results right shoulder
Subjective
.
.:
Patient reports improvement in how he is feeling overall. He does continue to complain of signficant pain however with any motion of his right shoulder.
Vital Signs and Labs
.
Vital Signs and Labs:
Lab Results
12/03/23 07:41
12/03/23 07:41
Temp Pulse Resp BP Pulse Ox
98.5 F 83 16 149/71 98
12/03/23 07:53 12/03/23 07:53 12/03/23 07:53 12/03/23 07:53 12/03/23 07:53
Physical Exam
-
MSK RUE
Skin intact, no ecchymosis, there is some moderate swelling noted throughout right upper extremity
Improvement in erythematous appearance of skin mostly over distal upper arm, antecubital fossa
Significant pain with any passive motion of right shoulder
Unable to actively elevate or externally rotate shoulder without significant pain
Distal motor and sensation at baseline
--- NOTE | 2023-12-03 12:42 | PHA.VAN.FU ---
Vancomycin Assessment / Plan
- Assessment
Renal Function: SCR Decreasing (1.9>1.5)
WBC's are: Trending Down (14.5>12.1)
In the past 24 hrs, patient has been: Afebrile
Concomitant Antimicrobials: Cefazolin
- Assessment - Therapeutic Drug Monitoring
Random Level: 7.9 drawn ~ 22.5 hrs after vancomycin 750mg dose given
- Dosing Plan
Dosing by Level: Re-dose today (Vancomycin 1500mg (15mg/kg) x 1)
- Monitoring Plan
Random Level: Ordered for 12/04/23 at 06:00
Will consider scheduled dosinig once renal function stabilizes
- Follow Up
Pharmacy will continue to follow.
Vancomycin Follow UP
- -
Patient Age: 78
Patient Sex: Male
Vancomycin Day #: 2
Indication: Skin And Soft Tissue
Requesting Provider: Dr. Brooks
Pertinent Antimicrobial Allergies:
Penicillins - rash
Height / Weight:
Height 5 ft 8 in
Actual Weight 96.757 kg
Pertinent Past Medical History: BMI ~32, CKD stage 3b
- Vital Signs / Lab Results
Temp Pulse Resp BP Pulse Ox
98.5 F 83 16 149/71 98
12/03/23 07:53 12/03/23 07:53 12/03/23 07:53 12/03/23 07:53 12/03/23 07:53
Lab Results - Hematology
12/01/23 12/02/23 12/03/23
19:54 05:51 07:41
WBC 15.9 H 14.5 H 12.1 H
Lab Results - Chemistry
12/01/23 12/02/23 12/03/23
19:54 05:51 07:41
BUN 88 H 87 H 70 H
Creatinine 2.2 H 1.9 H 1.5 H
Estimated Creat Clear 30 35 44
Albumin 2.9 L
12/01/23
19:54
Lactic Acid 1.5
Microbiology Results
12/02/23 17:31 Body Fluid Culture - Preliminary
Joint Fluid No Growth After 18-24 Hours
Gram Stain - Preliminary
12/01/23 19:54 Blood Culture - Preliminary
Blood/Venous No Growth in 24 hours- Final report to follow
12/01/23 19:54 Blood Culture - Preliminary
Blood/Venous No Growth in 24 hours- Final report to follow
Therapeutic Drug Monitoring
Random Vancomycin 7.9 ug/ml 12/03/23 07:41
[2023-12-03] MEDS: ULTRAM 50 MG PO ×2 (13:42→22:58)
[2023-12-03] MEDS: VANCOCIN 300 ML IV (15:00)
[2023-12-03] MEDS: VANCOCIN 300 MG IV (15:00)
[2023-12-03 15:58] VITALS: BP 149/80
[2023-12-03] MEDS: NORVASC 10 MG PO (17:28)
--- NOTE | 2023-12-03 18:33 | W.PN.UPDATE ---
Update Note
Progress Note Update
Spoke to patient and at bedside regarding MRI results indicating extensive abscess right upper extremity. Discussed treatment options both surgical and non surgical. We did discuss also IR guided percutaneous drainage as well as open I and D.
We did discuss relative risks and and benefits of treatment options. After our discussion, patient elected to proceed with open I and D right shoulder. Will plan to obtain written informed consent in AM.
NPO at midnight
Hold DVT ppx
Plan for I and D right upper extremity abscess in AM
[2023-12-03] MEDS: FLUSH (NSS) 2 FLUSH IV (23:00)
[2023-12-03 23:26] VITALS: BP 137/73
[2023-12-04] VITALS (13 sets, daily range): BP systolic 20–164; BP diastolic 62–84
--- NOTE | 2023-12-04 03:17 | PTCARENOTE ---
NPO since midnight except sips of clears.
--- NOTE | 2023-12-04 08:10 | OR.RPT ---
Operative Report
Operative Report
Anesthesia Type:
General
Operative Indications:
Right upper extremity pain and swelling and MRI evidence of fluid collection abscess
Operative Findings :
Small bloody fluid collection with fibrinous appearing snot like quality tissue noted deep to biceps muscle belly as well as within the bicipital groove right upper extremity
Complications:
None
Implants:
None
Procedure and Technique:
Irrigation debridement right upper extremity, excisional
INDICATIONS FOR PROCEDURE:
78-year-old active male presented to the [place] emergency department with complaints of right upper extremity pain and swelling. He had atraumatic onset this past weekend of severe pain associated with rigors and chills. He was seen by his
orthopedist on Tuesday administered an intra-articular right glenohumeral corticosteroid injection. He reports that this actually worsened his symptoms. He was subsequently seen by landfill gas collection operator for ongoing left lower extremity swelling and known
cellulitis. As well as for right upper extremity increased swelling and redness. Patient subsequently presented to the emergency department for worsening right upper extremity symptoms the request of his [id number] who is a brazer controlled atmospheric furnace. He
was admitted for IV antibiotics. Aspiration of right glenohumeral joint was negative for significant effusion or evidence of septic arthritis. MRI was then obtained of the right upper extremity that did not show extensive fluid collection
concerning for abscess and bicipital tenosynovitis. I had a long discussion with the patient as well as his regarding diagnosis and treatment options. We discussed continued conservative management as well as surgical intervention. Discussed
both open irrigation debridement as well as interventional radiology percutaneous procedures. After discussion patient elected to proceed with open irrigation debridement right upper extremity. We discussed risks benefits and alternatives of
surgery. Discussed the usual expected perioperative postoperative course. After discussion, written informed consent was obtained. Did explain to him at length that I do not have a good explanation for why he developed this fluid collection. I
did explain to him that we would send fluid and potentially pathology pending intraoperative findings.
OPERATIVE PROCEDURE:
Patient was seen and identified in the preoperative holding area. He was taken to the operating room after marking the correct operative extremity. General anesthesia was administered by the anesthesia providers. Right upper extremity was then
prepped and draped in a normal sterile fashion. Timeout was performed again identifying the correct operative extremity. Preoperative antibiotics were held. Standard deltopectoral approach was taken with extension distally. Sharp dissection was
carried through skin and subcutaneous tissues. Cephalic vein was identified and retracted laterally. Clavipectoral fascia was incised there was noted to be small bloody fluid collection deep to clavipectoral fascia in the area of bicipital groove.
The incision was carried distally. The biceps muscle was identified and retracted medially. There was noted to be a small bloody fluid collection deep to the biceps muscle belly and superficial to the brachialis. There was noted to be
significant fibrinous appearing tissue with a snot like quality throughout the space. Cultures were obtained. Tissue was sent for both pathology and culture. Excisional debridement was performed with the use of rongeur. Copious irrigation normal
saline solution was used to irrigate this space. Blunt dissection was carried distally to the level of the elbow and loculated fluid was noted. Again tissue was copiously irrigated. Proximally the biceps tendon sheath was incised and there is
noted to be similar appearing tissue within the bicipital groove. This was debrided with use of a rongeur. The bicipital groove and tendon sheath was digitally bluntly dissected distally to the muscle belly deep to the pectoralis.. The rotator
interval was also incised and minimal murky appearing fluid was noted. Digital blunt dissection was carried into the joint and medially deep to the subscapularis. A small subscap split was then performed at the junction of the middle third and
lower third subscapularis and blunt dissection was carried medially. Minimal fluid was expressed. Further irrigation with normal saline was utilized. In total approximately 7 L normal saline was used for irrigation. A KEREN drain was then placed
within the bicipital groove and carried distally to the level of the muscle belly. Wound was then closed in layered fashion utilizing 0 PDS suture to loosely reapproximate the deltopectoral interval. 2-0 PDS suture was used to close the
subcutaneous layer. Daine were used for skin. Aquacel dressing was placed and KEREN drain was placed to suction. Anesthesia was reversed and patient was taken to PACU in stable condition in a sling. Postoperative plans include nonweightbearing to
the operative extremity. Will plan to follow-up intraoperative cultures and pathology. Continue antibiotics per infectious disease and primary team recommendations.
Disposition:
PACU stable condition
[2023-12-04 08:14] LABS: % Basophils 0.4 % (0-2); % Eosinophils 0.1 % (0-6); % Lymphocytes 6.1 % (20.5-51.1); % Monocytes 10.7 % (1.7-9.3); % Neutrophils 78.7 % (42.2-75.2); Absolute Basophils 0.1 10^3/uL (0-0.2); Absolute Immature Granulocytes 0.6 10^3/uL (0-0.05); Absolute Lymphocytes 0.9 10^3/uL (1.2-3.4); Absolute Monocytes 1.5 10^3/uL (0.1-0.6); Absolute Neutrophils 10.9 10^3/uL (1.4-6.5); Hematocrit 34.4 % (39.0-52.0); Hemoglobin 12.2 g/dL (13.0-18.0); Mean Corp Hgb Conc. 35.5 g/dL (33.0-37.0); Mean Corpuscular Hgb 33.1 pg (27.0-31.0); Mean Corpuscular Volume 93.2 fL (80.0-94.0); Mean Platelet Volume 10.7 fL (7.4-10.4); Nucleated Red Blood Cells % 0 % (-); Platelet Count 252 10^3/uL (130-400); Red Blood Cell Count 3.69 10^6/uL (4.70-6.10); Red Cell Dist. Width 14.4 % (11.5-14.5); White Blood Cell Count 13.9 10^3/uL (4.8-10.8)
[2023-12-04 08:39] LABS: Vancomycin Random 10.6 ug/ml
[2023-12-04 08:47] LABS: Blood Urea Nitrogen 49 mg/dl (9-20); Calcium 7.7 mg/dl (8.4-10.2); Carbon Dioxide 25 mmol/L (22-30); Chloride 104 mmol/L (98-107); Estimated Creatinine Clearance 47 ml/min; Glucose 144 mg/dl (70-99); Potassium 4.2 mmol/L (3.5-5.1); Sodium 139 mmol/L (135-145); eGFR 50.81
[2023-12-04] MEDS: HEPARIN SC (09:12)
[2023-12-04] MEDS: HYDROPHOR 1 APPLIC TOPICAL (09:12)
[2023-12-04] MEDS: DESENEX/MITRAZOL/ZEASORB 1 APPLIC TOPICAL ×2 (09:13→20:14)
[2023-12-04] MEDS: ANCEF 10 IV ×2 (09:25→20:13)
--- NOTE | 2023-12-04 09:46 | PHA.VAN.FU ---
Vancomycin Assessment / Plan
- Assessment
Renal Function: SCR Decreasing (1.5>1.4)
WBC's are: Trending Up (12.1>13.9)
In the past 24 hrs, patient has been: Afebrile
Concomitant Antimicrobials: Cefazolin
- Assessment - Therapeutic Drug Monitoring
Random Level: 10.6 drawn ~17 hrs after vancomycin 1500mg dose given
- Dosing Plan
Dosing by Level: Re-dose today (Vancomycin 1500mg x 1)
- Monitoring Plan
Random Level: Ordered for 12/05/23 at 06:00
- Follow Up
Pharmacy will continue to follow.
Vancomycin Follow UP
- -
Patient Age: 78
Patient Sex: Male
Vancomycin Day #: 3
Indication: Skin And Soft Tissue
Requesting Provider: Dr. Brooks
Pertinent Antimicrobial Allergies:
Penicillins - rash
Height / Weight:
Height 5 ft 8 in
Actual Weight 96.757 kg
Pertinent Past Medical History: BMI ~32, CKD stage 3b
- Vital Signs / Lab Results
Temp Pulse Resp BP Pulse Ox
99.1 F 82 16 146/75 96
12/04/23 07:10 12/04/23 07:10 12/04/23 07:10 12/04/23 07:10 12/04/23 07:10
Lab Results - Hematology
12/01/23 12/02/23 12/03/23
19:54 05:51 07:41
WBC 15.9 H 14.5 H 12.1 H
12/04/23
07:41
WBC 13.9 H
Lab Results - Chemistry
12/01/23 12/02/23 12/03/23
19:54 05:51 07:41
BUN 88 H 87 H 70 H
Creatinine 2.2 H 1.9 H 1.5 H
Estimated Creat Clear 30 35 44
Albumin 2.9 L
12/04/23
07:41
BUN 49 H
Creatinine 1.4 H
Estimated Creat Clear 47
Albumin
12/01/23
19:54
Lactic Acid 1.5
Microbiology Results
12/01/23 19:54 Blood Culture - Preliminary
Blood/Venous No Growth in 48 hours- Final report to follow
12/01/23 19:54 Blood Culture - Preliminary
Blood/Venous No Growth in 48 hours- Final report to follow
12/02/23 17:31 Body Fluid Culture - Preliminary
Joint Fluid No Growth After 18-24 Hours
Gram Stain - Preliminary
Therapeutic Drug Monitoring
Random Vancomycin 10.6 ug/ml 12/04/23 07:41
[2023-12-04 10:07] LABS: Erythrocyte Sed Rate 71 mm/hour (0-20)
[2023-12-04] MEDS: NSS 1000 IV ×2 (10:27→20:17)
[2023-12-04] MEDS: DILAUDID 0.5 MG IV (10:48)
[2023-12-04] MEDS: VANCOCIN 300 ML IV (11:17)
[2023-12-04] MEDS: VANCOCIN 300 MG IV (11:17)
[2023-12-04] MEDS: LIDOCAINE 4% PATCH TOPICAL (11:19)
--- NOTE | 2023-12-04 12:41 | PTCARENOTE ---
Received pt from PACU at 1109. Pt drowsy but arousable, 2L NC in place, DRY KILN OPERATOR at bedside for report. VSS, mylesel CDI, KEREN drain in place, call ventura within reach and family at bedside.
[2023-12-04] MEDS: DILAUDID 0.25 MG IV ×2 (14:22→20:12)
--- NOTE | 2023-12-04 15:03 | W.PN.HOSP.TC ---
Today's Communication/Plan
-
follow operative cultures and continue Abx per ID
post-op care per Ortho
Assessment / Plan
Assessment / Plan
Assessment:
Sepsis POA
RUE cellulitis, possible septic R shoulder joint vs R biceps myositis vs abscess
- recent CS injection on Tuesday at R shoulder
- CRP/ESR elevated; trend
- s/p IR shoulder aspiration on 12/02. Follow GS/Cx
- MRI: A rim-enhancing fluid collection deep to the biceps muscle extending from the proximal humerus to the distal humerus is most suspicious for a soft tissue abscess. Additional loculated rim-enhancing fluid superficial to the scapula in the
subscapularis muscle is also concerning for infected fluid. Tenosynovitis of the long head biceps tendon, most likely infectious tenosynovitis given the adjacent findings. Synovial enhancement and periarticular soft tissue edema about the
glenohumeral joint could be degenerative/reactive but septic arthritis is not excluded and recommend correlation with the recent right glenohumeral joint aspiration. However, no large glenohumeral joint effusion on this exam.
- s/p Washout 12/04; drain in place - follow orthopedics recs
- continue IV Vanco/Ancef pending culture data - follow ID recs
- pain control; lidocaine patches, prn tramadol
Also LLE cellulitis, chronic xerosis
- ID/wound care following
- continue IV Vanco/Ancef and follow cultures
- continue Aquaphor
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
- likely from heavy NSAID usage outpatient
- hold nephrotoxins
- continue IVF
- monitor Cr, down to 1.4
Essential HTN
- continue CCB
- hold ARB/HCTZ; use BB if needed
DVT ppx: SC Heparin
Code: Full
Anticipated Discharge: > 48 hours
Subjective/Interval History
-
Date of Service: December 04, 2023
seen s/p washout procedure
feels improved, arm in sling, drain in place
no fevers
Objective Data
-
Labs:
Laboratory Results
12/04/23
07:41
WBC 13.9 H
Hgb 12.2 L
Hct 34.4 L
Plt Count 252 D
Sodium 139
Potassium 4.2
Chloride 104
Carbon Dioxide 25
BUN 49 H
Creatinine 1.4 H
Glucose 144 H
Calcium 7.7 L
Vital Signs:
Vital Signs
Temp Pulse Resp BP Pulse Ox
98.4 F 75 16 139/67 94
12/04/23 14:18 12/04/23 14:18 12/04/23 14:18 12/04/23 14:18 12/04/23 14:18
I&O
12/03/23 12/04/23 12/05/23
06:59 06:59 06:59
Intake Total 3590 / 3590 1940 / 1940 50 / 50
Output Total 2150 / 2150 1050 / 1050 20 / 20
Balance 1440 / 1440 890 / 890 30 / 30
Physical Exam
-
General: No Apparent Distress
HEENT: Normocephalic and Atraumatic
Respiratory: Negative Wheezes
Cardiac: Regular Rhythm
GI: Soft
Genito-urinary: No Costovertebral Tender
Musculoskeletal: Other (RUE dressing with drain, sling in place)
Neuro: AO x 3
Hematologic / Lymphatic: No Lymphadenopathy
Psych: Calm
Data Reviewed
-
Total Time Spent with Patient (in minutes): 46
Labs: Labs Reviewed by me
[2023-12-04] MEDS: NORVASC 10 MG PO (19:23)
[2023-12-04] MEDS: COLACE 100 MG PO (20:13)
[2023-12-05 03:19] VITALS: BP 143/80
[2023-12-05] MEDS: DILAUDID 0.25 MG IV (04:28)
[2023-12-05] MEDS: ANCEF 10 IV ×3 (04:28→19:50)
[2023-12-05 04:48] LABS: % Basophils 0.4 % (0-2); % Eosinophils 0.1 % (0-6); % Immature Granulocytes 3.9 % (0-0.5); % Monocytes 10.4 % (1.7-9.3); % Neutrophils 79.2 % (42.2-75.2); Absolute Basophils 0.1 10^3/uL (0-0.2); Absolute Immature Granulocytes 0.6 10^3/uL (0-0.05); Absolute Lymphocytes 0.9 10^3/uL (1.2-3.4); Absolute Monocytes 1.7 10^3/uL (0.1-0.6); Absolute Neutrophils 12.5 10^3/uL (1.4-6.5); Hematocrit 30.8 % (39.0-52.0); Mean Corp Hgb Conc. 35.7 g/dL (33.0-37.0); Mean Corpuscular Hgb 32.8 pg (27.0-31.0); Mean Corpuscular Volume 91.9 fL (80.0-94.0); Mean Platelet Volume 10.4 fL (7.4-10.4); Nucleated Red Blood Cells % 0 % (-); Platelet Count 248 10^3/uL (130-400); Red Blood Cell Count 3.35 10^6/uL (4.70-6.10); Red Cell Dist. Width 14.3 % (11.5-14.5); White Blood Cell Count 15.8 10^3/uL (4.8-10.8)
[2023-12-05 05:34] LABS: Blood Urea Nitrogen 45 mg/dl (9-20); Calcium 7.2 mg/dl (8.4-10.2); Carbon Dioxide 25 mmol/L (22-30); Chloride 103 mmol/L (98-107); Estimated Creatinine Clearance 60 ml/min; Glucose 173 mg/dl (70-99); Potassium 4.5 mmol/L (3.5-5.1); Sodium 137 mmol/L (135-145); eGFR > 60.00
[2023-12-05 05:36] LABS: Vancomycin Random 11.1 ug/ml
[2023-12-05 05:46] VITALS: BMI 33.3
[2023-12-05 07:07] VITALS: BP 166/86
--- NOTE | 2023-12-05 08:54 | PHA.VAN.FU ---
Vancomycin Assessment / Plan
- Assessment
Renal Function: SCR Decreasing
WBC's are: Trending Up (s/p OR 12/04)
In the past 24 hrs, patient has been: Afebrile
Concomitant Antimicrobials: cefazolin
- Assessment - Therapeutic Drug Monitoring
Random Level: 11.1 - drawn ~17H after previous dose of 1500mg
- Dosing Plan
Dosing by Level: Re-dose today (Vanc 1500mg)
if SCR continues to improve, may require Q12H dosing
Will continue with 1500mg x1 today given slight accumulation and patient at therapeutic levels today
- Monitoring Plan
Random Level: 12/06 0600
- Follow Up
Pharmacy will continue to follow.
Vancomycin Follow UP
- -
Patient Age: 78
Patient Sex: Male
Vancomycin Day #: 4
Indication: Skin And Soft Tissue
Requesting Provider: Dr. Brooks / Destiny
Pertinent Antimicrobial Allergies:
Penicillins - rash
Height / Weight:
Height 5 ft 8 in
Actual Weight 99.393 kg
Pertinent Past Medical History: BMI ~32, CKD stage 3b
- Vital Signs / Lab Results
Temp Pulse Resp BP Pulse Ox
98.4 F 80 18 143/80 95
12/05/23 03:19 12/05/23 03:19 12/05/23 03:19 12/05/23 03:19 12/05/23 03:19
Lab Results - Hematology
12/03/23 12/04/23 12/05/23
07:41 07:41 04:17
WBC 12.1 H 13.9 H 15.8 H
Lab Results - Chemistry
12/03/23 12/04/23 12/05/23
07:41 07:41 04:17
BUN 70 H 49 H 45 H
Creatinine 1.5 H 1.4 H 1.1
Estimated Creat Clear 44 47 60
Microbiology Results
12/01/23 19:54 Blood Culture - Preliminary
Blood/Venous No Growth in 72 hours- Final report to follow
12/01/23 19:54 Blood Culture - Preliminary
Blood/Venous No Growth in 72 hours- Final report to follow
12/04/23 09:54 Fungal Culture - Preliminary
Arm - Right Culture in progress.
Positive cultures are reported as soon as detected.
Final report to follow in four to five weeks.
12/02/23 17:31 Body Fluid Culture - Preliminary
Joint Fluid No Growth After 48 Hours
Gram Stain - Preliminary
Therapeutic Drug Monitoring
Random Vancomycin 11.1 ug/ml 12/05/23 04:17
[2023-12-05] MEDS: LIDOCAINE 4% PATCH 1 PATCH TOPICAL (09:15)
[2023-12-05] MEDS: ULTRAM 50 MG PO (09:15)
[2023-12-05] MEDS: COLACE 100 MG PO ×2 (09:15→19:50)
[2023-12-05] MEDS: DESENEX/MITRAZOL/ZEASORB 1 APPLIC TOPICAL ×2 (09:16→19:54)
[2023-12-05] MEDS: HYDROPHOR 1 APPLIC TOPICAL (09:16)
[2023-12-05] MEDS: NSS IV (09:21)
--- NOTE | 2023-12-05 09:37 | W.PN.ID1 ---
Date of Service
Date of Service: December 05, 2023
Today's Communication
Continue abx.
Assessment / Plan
Right upper extremity pain, swelling
- s/p I&D of collection (12/04/23)
Leukocytosis
Left lower extremity edema
Elevated ESR / CRP
Renal insufficiency
- improved
HTN
Hypothyroidism
Vocal cord cancer
Recommendations:
Continue with vancomycin and cefazolin (d#5 abx).
Follow white count and temperature curve.
Await further cultures to guide abx selection / de-escalation.
Continue LE compression.
����������������������������������������������������������
Chief Complaint
-: Cellulitis
Subjective / Review of Systems
Review of Systems: No Fever and No Chills
Vital Signs / Physical Exam
Vital Signs
Vital Signs
Temp Pulse Resp BP Pulse Ox
98.1 F 80 16 166/86 99
12/05/23 07:07 12/05/23 07:07 12/05/23 07:07 12/05/23 07:07 12/05/23 07:07
Physical Exam
Constitutional: No Acute Distress, Comfortable and Non-toxic
Eyes: Sclera Anicteric
Cardiovascular: S1/S2; Negative S3/S4
Pulmonary: Non Labored
Gastrointestinal: Soft and Non Tender
Extremities: Other (right shoulder with KEREN in place with serosanguineous fluid.)
Neurological: Awake and Alert
Psychological: Calm
Objective Data
Lab Data
Lab Results
12/05/23 04:17
12/05/23 04:17
ESR 71 mm/hour (0-20) H 12/04/23 07:41
Estimated Creat Clear 60 ml/min 12/05/23 04:17
Lactic Acid 1.5 mmol/L (0.7-2.0) 12/01/23 19:54
Total Bilirubin 0.8 mg/dl (0.2-1.3) 12/01/23 19:54
AST 49 U/L (17-59) 12/01/23 19:54
ALT 31 U/L (0-50) 12/01/23 19:54
Alkaline Phosphatase 80 U/L (38-126) 12/01/23 19:54
C-Reactive Protein 145.30 mg/L (0.0-10.00) H 12/04/23 07:41
Most recent labs reviewed.
Micro Results:
12/01/23 19:54 Blood Culture - Preliminary
Blood/Venous No Growth in 72 hours- Final report to follow
12/01/23 19:54 Blood Culture - Preliminary
Blood/Venous No Growth in 72 hours- Final report to follow
12/04/23 09:54 Fungal Culture - Preliminary
Arm - Right Culture in progress.
Positive cultures are reported as soon as detected.
Final report to follow in four to five weeks.
12/04/23 08:57 Anaerobic Culture - Pending
Arm - Right
12/04/23 08:57 Wound Culture - Pending
Arm - Right Gram Stain - Pending
12/04/23 09:06 Tissue Culture - Pending
Abscess Gram Stain - Pending
12/02/23 17:31 Body Fluid Culture - Preliminary
Joint Fluid No Growth After 48 Hours
Gram Stain - Preliminary
Imaging:
12/01/2023 Duplex ultrasound left lower extremity, right upper extremity: No evidence of DVT noted.
[2023-12-05] MEDS: VANCOCIN 300 MG IV (11:00)
[2023-12-05] MEDS: VANCOCIN 300 ML IV (11:00)
[2023-12-05 11:20] VITALS: BP 143/85
--- NOTE | 2023-12-05 11:57 | W.PN.HOSP.TC ---
Today's Communication/Plan
-
await cultures; continue Abx
PT/OT
resume ARB
Assessment / Plan
Assessment / Plan
Assessment:
Sepsis POA
RUE cellulitis, possible septic R shoulder joint vs R biceps myositis vs abscess
- recent CS injection on Tuesday at R shoulder
- CRP/ESR elevated; trend
- s/p IR shoulder aspiration on 12/02. Follow GS/Cx
- MRI: A rim-enhancing fluid collection deep to the biceps muscle extending from the proximal humerus to the distal humerus is most suspicious for a soft tissue abscess. Additional loculated rim-enhancing fluid superficial to the scapula in the
subscapularis muscle is also concerning for infected fluid. Tenosynovitis of the long head biceps tendon, most likely infectious tenosynovitis given the adjacent findings. Synovial enhancement and periarticular soft tissue edema about the
glenohumeral joint could be degenerative/reactive but septic arthritis is not excluded and recommend correlation with the recent right glenohumeral joint aspiration. However, no large glenohumeral joint effusion on this exam.
- s/p Washout 12/04; drain in place - follow orthopedics recs
- continue IV Vanco/Ancef pending culture data - follow ID recs
- pain control; lidocaine patches, prn tramadol
- PT/OT
Also LLE cellulitis, chronic xerosis
- ID/wound care following
- continue IV Vanco/Ancef and follow cultures
- continue Aquaphor
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
- likely from heavy NSAID usage outpatient
- hold nephrotoxins
- received IVF and now Cr down to 1.1 (baseline around 1.2)
Essential HTN
- continue CCB
- resume ARB
- continue to hold HCTZ
DVT ppx: SC Heparin
Code: Full
Anticipated Discharge: > 48 hours
Subjective/Interval History
-
Date of Service: December 05, 2023
denies any major complaints, pain well controlled
Objective Data
-
Labs:
Laboratory Results
12/05/23
04:17
WBC 15.8 H
Hgb 11.0 L
Hct 30.8 L
Plt Count 248
Sodium 137
Potassium 4.5
Chloride 103
Carbon Dioxide 25
BUN 45 H
Creatinine 1.1
Glucose 173 H
Calcium 7.2 L
Vital Signs:
Vital Signs
Temp Pulse Resp BP Pulse Ox
98.1 F 80 16 166/86 99
12/05/23 07:07 12/05/23 07:07 12/05/23 07:07 12/05/23 07:07 12/05/23 07:07
I&O
12/04/23 12/05/23 12/06/23
06:59 06:59 06:59
Intake Total 1939
Output Total 1050 / 1050 2059
Balance 890 / 890 -50 / -50
Physical Exam
-
General: No Apparent Distress
HEENT: Normocephalic and Atraumatic
Respiratory: Negative Wheezes or Rales
Cardiac: Regular Rhythm and S1/S2
GI: Soft
Genito-urinary: No Costovertebral Tender
Musculoskeletal: Other (RUE with dressing, drain with serosanginous output)
Neuro: AO x 3
Hematologic / Lymphatic: No Lymphadenopathy
Psych: Calm
Data Reviewed
-
Total Time Spent with Patient (in minutes): 45
Labs: Labs Reviewed by me
--- NOTE | 2023-12-05 12:11 | W.PN.ORTHO ---
Today's Communication / Plan
-
78 yo M POD 1 s/p I and D right upper extremity
NWB RUE in sling for comfort
PT/OT
DVT ppx: OK to resume from orthopedic standpoint
pain control
Monitor drain output
f/u intra op cultures/pathology
Continue Antibiotics per primary team/ID
Subjective
.
.:
Patient resting comfortably in chair. Does report improvement in arm pain but still complaining of pain with any motion of right upper extremity. Denies any numbness or tingling.
Vital Signs and Labs
.
Vital Signs and Labs:
Lab Results
12/05/23 04:17
12/05/23 04:17
Temp Pulse Resp BP Pulse Ox
98.1 F 80 16 166/86 99
12/05/23 07:07 12/05/23 07:07 12/05/23 07:07 12/05/23 07:07 12/05/23 07:07
Physical Exam
-
MSK RUE
Dressing with mild bloody drainage
Drain through surgical incision with serosanguineous fluid
Motor and sensation intact distally
Painful passive motion right upper extremity
[2023-12-05] MEDS: DIOVAN 160 MG PO (14:02)
[2023-12-05 15:07] VITALS: BP 151/96
--- NOTE | 2023-12-05 15:13 | CM ---
Reviewed the chart notes and spoke with the patient at the bedside. The patient is pod#1 s/p I and D right upper extremity. Patient is NWB to RUE, sling and drain in place. CM continues to be available to patient/family and is monitoring medical
plan for needs at discharge.
Plan: Discharge to home with possible need for VN services.
[2023-12-05] MEDS: NORVASC 10 MG PO (18:32)
[2023-12-05] MEDS: HEPARIN 5000 UNITS SC (19:50)
[2023-12-05 23:30] VITALS: BP 128/85
[2023-12-06] MEDS: ANCEF 10 IV ×3 (03:59→19:47)
[2023-12-06 04:59] LABS: % Basophils 0.3 % (0-2); % Eosinophils 0.3 % (0-6); % Lymphocytes 5.9 % (20.5-51.1); % Monocytes 9.2 % (1.7-9.3); % Neutrophils 80.3 % (42.2-75.2); Absolute Basophils 0.1 10^3/uL (0-0.2); Absolute Eosinophils 0.1 10^3/uL (0-0.7); Absolute Immature Granulocytes 0.6 10^3/uL (0-0.05); Absolute Lymphocytes 0.9 10^3/uL (1.2-3.4); Absolute Monocytes 1.4 10^3/uL (0.1-0.6); Absolute Neutrophils 12.1 10^3/uL (1.4-6.5); Hematocrit 30.8 % (39.0-52.0); Hemoglobin 10.7 g/dL (13.0-18.0); Mean Corp Hgb Conc. 34.7 g/dL (33.0-37.0); Mean Corpuscular Volume 92.2 fL (80.0-94.0); Mean Platelet Volume 10.3 fL (7.4-10.4); Nucleated Red Blood Cells % 0 % (-); Platelet Count 294 10^3/uL (130-400); Red Blood Cell Count 3.34 10^6/uL (4.70-6.10); Red Cell Dist. Width 14.2 % (11.5-14.5); White Blood Cell Count 15.1 10^3/uL (4.8-10.8)
[2023-12-06 05:12] LABS: Vancomycin Random 10.9 ug/ml
[2023-12-06 05:23] LABS: Blood Urea Nitrogen 34 mg/dl (9-20); Calcium 7.1 mg/dl (8.4-10.2); Carbon Dioxide 23 mmol/L (22-30); Chloride 109 mmol/L (98-107); Estimated Creatinine Clearance 61 ml/min; Glucose 161 mg/dl (70-99); Potassium 4.6 mmol/L (3.5-5.1); Sodium 136 mmol/L (135-145); eGFR > 60.00
[2023-12-06 05:56] VITALS: BMI 33.3
[2023-12-06 07:35] VITALS: BP 137/86
[2023-12-06] MEDS: LIDOCAINE 4% PATCH 1 PATCH TOPICAL (08:31)
[2023-12-06] MEDS: COLACE 100 MG PO (08:31)
[2023-12-06] MEDS: HEPARIN 5000 UNITS SC ×2 (08:32→19:49)
--- NOTE | 2023-12-06 08:37 | PHA.VAN.FU ---
Vancomycin Assessment / Plan
- Assessment
Renal Function: Stable
WBC's are: Stable
In the past 24 hrs, patient has been: Afebrile
Concomitant Antimicrobials: cefazolin
- Assessment - Therapeutic Drug Monitoring
Random Level: 10.9 - drawn ~17.5H after previous dose of 1500mg
- Dosing Plan
Dosing by Level: Re-dose today (Vanc 1500mg)
- Monitoring Plan
No level(s) ordered at this time: 12/07 06
- Follow Up
Pharmacy will continue to follow.
Vancomycin Follow UP
- -
Patient Age: 78
Patient Sex: Male
Vancomycin Day #: 5
Indication: Skin And Soft Tissue
Requesting Provider: Dr. Brooks / Destiny
Pertinent Antimicrobial Allergies:
Penicillins - rash
Height / Weight:
Height 5 ft 8 in
Actual Weight 99.393 kg
Pertinent Past Medical History: BMI ~32, CKD stage 3b
- Vital Signs / Lab Results
Temp Pulse Resp BP Pulse Ox
98.1 F 115 16 137/86 98
12/06/23 07:35 12/06/23 07:35 12/06/23 07:35 12/06/23 07:35 12/06/23 07:35
Lab Results - Hematology
12/03/23 12/04/23 12/05/23
07:41 07:41 04:17
WBC 12.1 H 13.9 H 15.8 H
12/06/23
04:38
WBC 15.1 H
Lab Results - Chemistry
12/03/23 12/04/23 12/05/23
07:41 07:41 04:17
BUN 70 H 49 H 45 H
Creatinine 1.5 H 1.4 H 1.1
Estimated Creat Clear 44 47 60
12/06/23
04:38
BUN 34 H
Creatinine 1.1
Estimated Creat Clear 61
Microbiology Results
12/01/23 19:54 Blood Culture - Preliminary
Blood/Venous No Growth in 4 days- Final report to follow
12/01/23 19:54 Blood Culture - Preliminary
Blood/Venous No Growth in 4 days- Final report to follow
12/04/23 09:06 Tissue Culture - Preliminary
Abscess No Growth After 18-24 Hours
Gram Stain - Preliminary
12/04/23 08:57 Wound Culture - Preliminary
Arm - Right No growth
Gram Stain - Preliminary
12/02/23 17:31 Body Fluid Culture - Final
Joint Fluid No Growth After 72 Hours
Gram Stain - Final
12/04/23 08:57 Anaerobic Culture - Preliminary
Arm - Right Culture pending. Anaerobic cultures are examined after 3
days incubation. Additional information to follow.
12/04/23 09:54 Fungal Culture - Preliminary
Arm - Right Culture in progress.
Positive cultures are reported as soon as detected.
Final report to follow in four to five weeks.
Therapeutic Drug Monitoring
Random Vancomycin 10.9 ug/ml 12/06/23 04:38
[2023-12-06] MEDS: DESENEX/MITRAZOL/ZEASORB 1 APPLIC TOPICAL ×2 (08:38→19:48)
[2023-12-06] MEDS: DIOVAN 160 MG PO (08:41)
[2023-12-06] MEDS: HYDROPHOR 1 APPLIC TOPICAL (09:13)
--- NOTE | 2023-12-06 09:17 | W.PN.HOSP.TC ---
Today's Communication/Plan
-
increase ARB to home dose
continue Abx pending cultures
Assessment / Plan
Assessment / Plan
Assessment:
Sepsis POA
RUE cellulitis, possible septic R shoulder joint vs R biceps myositis vs abscess
- recent CS injection on Tuesday at R shoulder
- CRP/ESR elevated; downtrended on repeat
- s/p IR shoulder aspiration on 12/02. Follow GS/Cx
- MRI: A rim-enhancing fluid collection deep to the biceps muscle extending from the proximal humerus to the distal humerus is most suspicious for a soft tissue abscess. Additional loculated rim-enhancing fluid superficial to the scapula in the
subscapularis muscle is also concerning for infected fluid. Tenosynovitis of the long head biceps tendon, most likely infectious tenosynovitis given the adjacent findings. Synovial enhancement and periarticular soft tissue edema about the
glenohumeral joint could be degenerative/reactive but septic arthritis is not excluded and recommend correlation with the recent right glenohumeral joint aspiration. However, no large glenohumeral joint effusion on this exam.
- s/p Washout 12/04; drain in place - follow orthopedics recs
- continue IV Vanco/Ancef pending culture data - follow ID recs
- pain control; lidocaine patches, prn tramadol
- PT/OT ongoing
Also LLE cellulitis, chronic xerosis
- ID/wound care following
- continue IV Vanco/Ancef and follow cultures
- continue Aquaphor
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
- likely from heavy NSAID usage outpatient
- hold nephrotoxins
- received IVF and now Cr down to 1.1 (baseline around 1.2)
Essential HTN
- continue CCB
- resume ARB
- continue to hold HCTZ
DVT ppx: SC Heparin
Code: Full
Anticipated Discharge: > 48 hours
Subjective/Interval History
-
Date of Service: December 06, 2023
pain improving, ROM improving
denies any new complaints
Objective Data
-
Labs:
Laboratory Results
12/06/23
04:38
WBC 15.1 H
Hgb 10.7 L
Hct 30.8 L
Plt Count 294
Sodium 136
Potassium 4.6
Chloride 109 H
Carbon Dioxide 23
BUN 34 H
Creatinine 1.1
Glucose 161 H
Calcium 7.1 L
Vital Signs:
Vital Signs
Temp Pulse Resp BP Pulse Ox
98.1 F 115 16 137/86 98
12/06/23 07:35 12/06/23 08:41 12/06/23 07:35 12/06/23 08:41 12/06/23 07:35
I&O
12/05/23 12/06/23 12/07/23
06:59 06:59 06:59
Intake Total 2009
Output Total 2059
Balance -50 / -50
Physical Exam
-
General: No Apparent Distress
HEENT: Normocephalic and Atraumatic
Respiratory: Negative Wheezes or Rales
Cardiac: Regular Rhythm and S1/S2
GI: Soft
Genito-urinary: No Costovertebral Tender
Musculoskeletal: No Edema and Other (RUE Dressing with drain in place)
Neuro: AO x 3
Psych: Calm
Data Reviewed
-
Total Time Spent with Patient (in minutes): 42
Labs: Labs Reviewed by me
[2023-12-06] MEDS: VANCOCIN 300 MG IV (09:21)
[2023-12-06] MEDS: VANCOCIN 300 ML IV (09:21)
--- NOTE | 2023-12-06 11:53 | VNURNOTE ---
Attempted to meet with patient at bedside. He was asleep. [facility] brochure left on table, will make second attempt to contact patient later.
[2023-12-06] MEDS: FLUSH (NSS) 2 FLUSH IV (11:57)
--- NOTE | 2023-12-06 13:28 | W.PN.ORTHO ---
Today's Communication / Plan
-
POD 2 s/p I and D RUE
NWB RUE, sling for comfort only, ok for pendulums and passive shoulder motion, ok for active elbow wrist and finger motion
DVT ppx
Pain control
IV antibiotics
f/u cultures, no growth to date, pathology consistent with inflammatory cells/abscess
Subjective
.
.:
Patient comfortable at rest. Continues to complain of pain and swelling right arm.
Vital Signs and Labs
.
Vital Signs and Labs:
Lab Results
12/06/23 04:38
12/06/23 04:38
Temp Pulse Resp BP Pulse Ox
98.1 F 115 16 137/86 98
12/06/23 07:35 12/06/23 08:41 12/06/23 07:35 12/06/23 08:41 12/06/23 11:52
Physical Exam
-
MSK RUE
Drain with minimal serosang fluid
Moderate swelling
SILT in all distributions distally
Motor intact ain/pn/u/r/m distally
BCR
Dressing mild bloody drainage
--- NOTE | 2023-12-06 13:52 | CM ---
Reviewed the chart notes. Patient will need VN at discharge. VN liaison placed referral, accepted. CM continues to be available to patient/family and is monitoring medical plan for needs at discharge.
Plan: Discharge to home with VN services.
--- NOTE | 2023-12-06 14:08 | VNURNOTE ---
Home Health Liaison spoke with patient to discuss [facility] nurse/therapy, visits, schedule and homebound status. Patient is agreeable and understands that visits at home will be 2-3 x per week to assess surgical site and teach medical management.
Patient is aware that VN will contact them for start of care in 1-2 days after discharge from . He denies questions and noted KEREN drain was just removed. Will continue to follow hospital course and if plan for IV antibiotics. [facility] referral
completed in [facility].
[2023-12-06] MEDS: ROXICODONE 5 MG PO (14:41)
[2023-12-06 15:42] VITALS: BP 151/79
[2023-12-06] MEDS: DILAUDID 0.25 MG IV ×2 (17:23→19:49)
[2023-12-06] MEDS: NORVASC 10 MG PO (17:23)
--- NOTE | 2023-12-06 18:11 | VATNOTE ---
attempted to restart IV due to phlebitis in left ac; unsuccessful. Will attempt midline
[2023-12-06] MEDS: COLACE PO ×2 (19:48→19:57)
[2023-12-06] MEDS: ULTRAM 50 MG PO (21:20)
[2023-12-06] MEDS: TYLENOL 650 MG PO (21:20)
[2023-12-06 23:11] VITALS: BP 158/87
[2023-12-07] MEDS: ANCEF 10 IV ×3 (05:00→20:03)
--- NOTE | 2023-12-07 05:05 | DOWNTIME ---
There was a PT [employer] Downtime on 12/07/2023 from 0111 to 12/07/2023 at 0405. Downtime documentation of patient's care, including medication administrations, has been reconciled in the electronic record per guidelines. Refer to the
patient's paper chart under the miscellaneous tab to see printed paper medication records and downtime forms.
[2023-12-07 05:58] LABS: % Basophils 0.3 % (0-2); % Eosinophils 0.6 % (0-6); % Immature Granulocytes 4.5 % (0-0.5); % Lymphocytes 6.6 % (20.5-51.1); % Monocytes 10.4 % (1.7-9.3); % Neutrophils 77.6 % (42.2-75.2); Absolute Eosinophils 0.1 10^3/uL (0-0.7); Absolute Immature Granulocytes 0.6 10^3/uL (0-0.05); Absolute Lymphocytes 0.9 10^3/uL (1.2-3.4); Absolute Monocytes 1.5 10^3/uL (0.1-0.6); Absolute Neutrophils 10.9 10^3/uL (1.4-6.5); Hematocrit 29.8 % (39.0-52.0); Hemoglobin 10.4 g/dL (13.0-18.0); Mean Corp Hgb Conc. 34.9 g/dL (33.0-37.0); Mean Corpuscular Hgb 33.1 pg (27.0-31.0); Mean Corpuscular Volume 94.9 fL (80.0-94.0); Mean Platelet Volume 10.3 fL (7.4-10.4); Nucleated Red Blood Cells % 0 % (-); Platelet Count 300 10^3/uL (130-400); Red Blood Cell Count 3.14 10^6/uL (4.70-6.10); Red Cell Dist. Width 14.3 % (11.5-14.5)
[2023-12-07 06:27] LABS: Vancomycin Random 9.5 ug/ml
[2023-12-07 06:30] LABS: Blood Urea Nitrogen 34 mg/dl (9-20); Calcium 7.2 mg/dl (8.4-10.2); Carbon Dioxide 25 mmol/L (22-30); Chloride 106 mmol/L (98-107); Estimated Creatinine Clearance 61 ml/min; Glucose 149 mg/dl (70-99); Potassium 4.9 mmol/L (3.5-5.1); Sodium 136 mmol/L (135-145); eGFR > 60.00
[2023-12-07 07:30] VITALS: BP 169/95
[2023-12-07] MEDS: COLACE 100 MG PO ×2 (07:39→20:03)
[2023-12-07] MEDS: DIOVAN 320 MG PO (07:39)
[2023-12-07] MEDS: HEPARIN 5000 UNITS SC ×2 (07:43→20:04)
[2023-12-07] MEDS: HYDROPHOR 1 APPLIC TOPICAL (07:44)
[2023-12-07] MEDS: DESENEX/MITRAZOL/ZEASORB 1 APPLIC TOPICAL ×2 (07:44→20:04)
[2023-12-07] MEDS: LIDOCAINE 4% PATCH 1 PATCH TOPICAL (07:44)
--- NOTE | 2023-12-07 07:49 | PHA.VAN.FU ---
Vancomycin Assessment / Plan
- Assessment
Renal Function: Stable
WBC's are: Trending Down
In the past 24 hrs, patient has been: Afebrile
Concomitant Antimicrobials: cefazolin
- Assessment - Therapeutic Drug Monitoring
Random Level: 9.5 - drawn ~20H after previous dose of 1500mg
- Dosing Plan
Dosing by Level: Re-dose today (Vanc 1000mg BID x2 doses as trial to see how patient will do with Q12H dosing interval)
- Monitoring Plan
Random Level: 12/08 0600
- Follow Up
Pharmacy will continue to follow.
Vancomycin Follow UP
- -
Patient Age: 78
Patient Sex: Male
Vancomycin Day #: 6
Indication: Skin And Soft Tissue
Requesting Provider: Dr. Brooks / Destiny
Pertinent Antimicrobial Allergies:
Penicillins - rash
Height / Weight:
Height 5 ft 8 in
Actual Weight 99.393 kg
Pertinent Past Medical History: BMI ~32, CKD stage 3b
- Vital Signs / Lab Results
Temp Pulse Resp BP Pulse Ox
98.6 F 92 18 169/95 97
12/06/23 23:11 12/07/23 07:39 12/06/23 23:11 12/07/23 07:39 12/06/23 23:11
Lab Results - Hematology
12/04/23 12/05/23 12/06/23
07:41 04:17 04:38
WBC 13.9 H 15.8 H 15.1 H
12/07/23
05:39
WBC 14.0 H
Lab Results - Chemistry
12/04/23 12/05/23 12/06/23
07:41 04:17 04:38
BUN 49 H 45 H 34 H
Creatinine 1.4 H 1.1 1.1
Estimated Creat Clear 47 60 61
12/07/23
05:39
BUN 34 H
Creatinine 1.1
Estimated Creat Clear 61
Microbiology Results
12/01/23 19:54 Blood Culture - Final
Blood/Venous No Growth - Final Report
12/01/23 19:54 Blood Culture - Final
Blood/Venous No Growth - Final Report
12/04/23 09:06 Tissue Culture - Preliminary
Abscess No Growth After 48 Hours
Gram Stain - Preliminary
12/04/23 08:57 Wound Culture - Preliminary
Arm - Right No growth
Gram Stain - Preliminary
12/02/23 17:31 Body Fluid Culture - Final
Joint Fluid No Growth After 72 Hours
Gram Stain - Final
12/04/23 08:57 Anaerobic Culture - Preliminary
Arm - Right Culture pending. Anaerobic cultures are examined after 3
days incubation. Additional information to follow.
Therapeutic Drug Monitoring
Random Vancomycin 9.5 ug/ml 12/07/23 05:39
[2023-12-07] MEDS: VANCOCIN 200 IV (09:05)
--- NOTE | 2023-12-07 09:21 | W.PN.ID1 ---
Date of Service
Date of Service: December 07, 2023
Today's Communication
Narrow to cefazolin alone.
Assessment / Plan
Right upper extremity pain, swelling
- s/p I&D of collection (12/04/23)
Leukocytosis
Left lower extremity edema
Elevated ESR / CRP
Renal insufficiency
- improved
HTN
Hypothyroidism
Vocal cord cancer
Recommendations:
Continue with cefazolin (d#7 abx). Discontinue further vancomycin.
Follow white count and temperature curve.
Continue LE compression.
����������������������������������������������������������
Chief Complaint
-: Cellulitis
Subjective / Review of Systems
Patient seen and examined. Denies significant discomfort in the upper extremity. No fevers or chills.
Review of Systems: No Fever and No Chills
Vital Signs / Physical Exam
Vital Signs
Vital Signs
Temp Pulse Resp BP Pulse Ox
97.8 F 92 14 169/95 100
12/07/23 07:30 12/07/23 07:39 12/07/23 07:30 12/07/23 07:39 12/07/23 07:30
Physical Exam
Constitutional: No Acute Distress, Comfortable and Non-toxic
Eyes: Sclera Anicteric
Cardiovascular: S1/S2; Negative S3/S4
Pulmonary: Non Labored
Gastrointestinal: Soft and Non Tender
Wound: Other (Right shoulder/arm wound dressed. Mild bloody strikethrough on dressing. No periwound erythema.)
Neurological: Awake and Alert
Psychological: Calm
Objective Data
Lab Data
Lab Results
12/07/23 05:39
12/07/23 05:39
ESR 71 mm/hour (0-20) H 12/04/23 07:41
Estimated Creat Clear 61 ml/min 12/07/23 05:39
Lactic Acid 1.5 mmol/L (0.7-2.0) 12/01/23 19:54
Total Bilirubin 0.8 mg/dl (0.2-1.3) 12/01/23 19:54
AST 49 U/L (17-59) 12/01/23 19:54
ALT 31 U/L (0-50) 12/01/23 19:54
Alkaline Phosphatase 80 U/L (38-126) 12/01/23 19:54
C-Reactive Protein 145.30 mg/L (0.0-10.00) H 12/04/23 07:41
Most recent labs reviewed.
Micro Results:
12/01/23 19:54 Blood Culture - Final
Blood/Venous No Growth - Final Report
12/01/23 19:54 Blood Culture - Final
Blood/Venous No Growth - Final Report
12/04/23 09:06 Tissue Culture - Preliminary
Abscess No Growth After 48 Hours
Gram Stain - Preliminary
12/04/23 08:57 Wound Culture - Preliminary
Arm - Right No growth
Gram Stain - Preliminary
12/02/23 17:31 Body Fluid Culture - Final
Joint Fluid No Growth After 72 Hours
Gram Stain - Final
12/04/23 08:57 Anaerobic Culture - Preliminary
Arm - Right Culture pending. Anaerobic cultures are examined after 3
days incubation. Additional information to follow.
12/04/23 09:54 Fungal Culture - Preliminary
Arm - Right Culture in progress.
Positive cultures are reported as soon as detected.
Final report to follow in four to five weeks.
Imaging:
12/01/2023 Duplex ultrasound left lower extremity, right upper extremity: No evidence of DVT noted.
--- NOTE | 2023-12-07 10:14 | W.PN.HOSP.TC ---
Today's Communication/Plan
-
Monitor vital signs and see plan
Now narrowed down to cefazolin, appreciate ID
Follow cultures
Restart HCTZ
pt/ot
Assessment / Plan
Assessment / Plan
Assessment:
Sepsis POA
RUE cellulitis, possible septic R shoulder joint vs R biceps myositis vs abscess
- recent CS injection on Tuesday at R shoulder
- CRP/ESR elevated; downtrended on repeat
- s/p IR shoulder aspiration on 12/02. Follow GS/Cx
- MRI: A rim-enhancing fluid collection deep to the biceps muscle extending from the proximal humerus to the distal humerus is most suspicious for a soft tissue abscess. Additional loculated rim-enhancing fluid superficial to the scapula in the
subscapularis muscle is also concerning for infected fluid. Tenosynovitis of the long head biceps tendon, most likely infectious tenosynovitis given the adjacent findings. Synovial enhancement and periarticular soft tissue edema about the
glenohumeral joint could be degenerative/reactive but septic arthritis is not excluded and recommend correlation with the recent right glenohumeral joint aspiration. However, no large glenohumeral joint effusion on this exam.
- s/p Washout 12/04;- follow orthopedics recs
- cw Ancef pending culture data - follow ID recs; vanc dc'ed
- pain control; lidocaine patches, prn tramadol
- PT/OT ongoing
Also LLE cellulitis, chronic xerosis
- ID/wound care following
- continue IV Vanco/Ancef and follow cultures
- continue Aquaphor
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
- likely from heavy NSAID usage outpatient
- hold nephrotoxins
- received IVF and now Cr down to 1.1 (baseline around 1.2)
Essential HTN
- continue CCB
- resume ARB
- restart HCTZ
DVT ppx: SC Heparin
Code: Full
General: No Apparent Distress
HEENT: Normocephalic and Atraumatic
Respiratory: Negative Wheezes or Rales
Cardiac: Regular Rhythm and S1/S2
GI: Soft
Genito-urinary: No Costovertebral Tender
Musculoskeletal: No Edema and Other (RUE Dressing)
Neuro: AO x 3
Psych: Calm
Anticipated Discharge: 24 - 48 hours
Subjective/Interval History
-
Date of Service: December 07, 2023
does have some pain
Objective Data
-
Labs:
Laboratory Results
12/07/23
05:39
WBC 14.0 H
Hgb 10.4 L
Hct 29.8 L
Plt Count 300
Sodium 136
Potassium 4.9
Chloride 106
Carbon Dioxide 25
BUN 34 H
Creatinine 1.1
Glucose 149 H
Calcium 7.2 L
Vital Signs:
Vital Signs
Temp Pulse Resp BP Pulse Ox
97.8 F 92 14 169/95 100
12/07/23 07:30 12/07/23 07:39 12/07/23 07:30 12/07/23 07:39 12/07/23 07:30
I&O
12/06/23 12/07/23 12/08/23
06:59 06:59 06:59
Intake Total 1540 / 1540
Output Total 710 / 710
Balance 830 / 830
[2023-12-07] MEDS: ORETIC 12.5 MG PO (10:34)
--- NOTE | 2023-12-07 12:40 | CM ---
Reviewed the chart notes. Patient ambulated in hallway with no device. CM continues to be available to patient/family and is monitoring medical plan for needs at discharge.
Plan: Discharge to home with [facility] services.
[2023-12-07 13:02] VITALS: BP 169/65; PULSE 92
[2023-12-07] MEDS: ULTRAM 50 MG PO (13:06)
[2023-12-07 15:08] VITALS: BP 151/89
[2023-12-07] MEDS: NORVASC 10 MG PO (17:22)
[2023-12-07] MEDS: ROXICODONE 5 MG PO (20:02)
[2023-12-07 23:05] VITALS: BP 164/78
[2023-12-08 00:05] VITALS: BP 164/78
[2023-12-08] MEDS: ANCEF 10 IV ×2 (04:40→12:03)
[2023-12-08 05:14] LABS: % Basophils 0.2 % (0-2); % Eosinophils 0.5 % (0-6); % Immature Granulocytes 2.4 % (0-0.5); % Lymphocytes 6.5 % (20.5-51.1); % Monocytes 9.3 % (1.7-9.3); % Neutrophils 81.1 % (42.2-75.2); Absolute Eosinophils 0.1 10^3/uL (0-0.7); Absolute Immature Granulocytes 0.3 10^3/uL (0-0.05); Absolute Lymphocytes 0.8 10^3/uL (1.2-3.4); Absolute Monocytes 1.2 10^3/uL (0.1-0.6); Absolute Neutrophils 10.1 10^3/uL (1.4-6.5); Hematocrit 27.4 % (39.0-52.0); Hemoglobin 9.7 g/dL (13.0-18.0); Mean Corp Hgb Conc. 35.4 g/dL (33.0-37.0); Mean Corpuscular Hgb 32.8 pg (27.0-31.0); Mean Corpuscular Volume 92.6 fL (80.0-94.0); Mean Platelet Volume 9.8 fL (7.4-10.4); Nucleated Red Blood Cells % 0 % (-); Platelet Count 160 10^3/uL (130-400); Red Blood Cell Count 2.96 10^6/uL (4.70-6.10); Red Cell Dist. Width 14.2 % (11.5-14.5); White Blood Cell Count 12.4 10^3/uL (4.8-10.8)
[2023-12-08 05:27] LABS: Blood Urea Nitrogen 29 mg/dl (9-20); Calcium 7.3 mg/dl (8.4-10.2); Carbon Dioxide 21 mmol/L (22-30); Chloride 107 mmol/L (98-107); Estimated Creatinine Clearance 61 ml/min; Glucose 180 mg/dl (70-99); Potassium 5.1 mmol/L (3.5-5.1); Sodium 134 mmol/L (135-145); eGFR > 60.00
[2023-12-08 07:30] VITALS: BP 155/72
[2023-12-08 07:59] LABS: Erythrocyte Sed Rate 91 mm/hour (0-20)
[2023-12-08] MEDS: COLACE 100 MG PO (08:29)
[2023-12-08] MEDS: DIOVAN 320 MG PO (08:30)
[2023-12-08] MEDS: HEPARIN 5000 UNITS SC (08:32)
[2023-12-08] MEDS: ORETIC 12.5 MG PO (08:33)
[2023-12-08] MEDS: DESENEX/MITRAZOL/ZEASORB 1 APPLIC TOPICAL (08:33)
[2023-12-08] MEDS: HYDROPHOR 1 APPLIC TOPICAL (08:34)
[2023-12-08] MEDS: LIDOCAINE 4% PATCH 1 PATCH TOPICAL (08:36)
--- NOTE | 2023-12-08 09:30 | W.PN.HOSP.TC ---
Addendum entered and electronically signed by Byron Campuzano MD 12/08/23 10:23:
Spoke with Dr. Dixon. Patient can go home today on p.o. antibiotics. [id number] updated over the phone.
Time of discharge 38 minutes
Addendum entered and electronically signed by Byron Campuzano MD 12/08/23 09:34:
Mild hyponatremia
Monitor
Original Note:
Today's Communication/Plan
-
Monitor vital signs and see plan
Awaiting ID to see today
CRP improving
Continue with antibiotics per infectious disease
Assessment / Plan
Assessment / Plan
Assessment:
Sepsis POA
RUE cellulitis, possible septic R shoulder joint vs R biceps myositis vs abscess
- recent CS injection on Tuesday at R shoulder
- CRP/ESR elevated; downtrended on repeat
- s/p IR shoulder aspiration on 12/02. Follow GS/Cx
- MRI: A rim-enhancing fluid collection deep to the biceps muscle extending from the proximal humerus to the distal humerus is most suspicious for a soft tissue abscess. Additional loculated rim-enhancing fluid superficial to the scapula in the
subscapularis muscle is also concerning for infected fluid. Tenosynovitis of the long head biceps tendon, most likely infectious tenosynovitis given the adjacent findings. Synovial enhancement and periarticular soft tissue edema about the
glenohumeral joint could be degenerative/reactive but septic arthritis is not excluded and recommend correlation with the recent right glenohumeral joint aspiration. However, no large glenohumeral joint effusion on this exam.
- s/p Washout 12/04;- follow orthopedics recs; s/p drain dc'ed 12/06
- cw Ancef; cx so far neg - follow ID recs; vanc dc'ed
Pathology consistent with inflammatory cells/abscess
- pain control; lidocaine patches, prn tramadol
- PT/OT ongoing
Also LLE cellulitis, chronic xerosis
- ID/wound care following
- continue Ancef and follow cultures
- continue Aquaphor
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
- likely from heavy NSAID usage outpatient
- hold nephrotoxins
- received IVF and now Cr down to 1.1 (baseline around 1.2)
Essential HTN
- continue CCB
- resume ARB
- restarted HCTZ
DVT ppx: SC Heparin
Code: Full
General: No Apparent Distress
HEENT: Normocephalic and Atraumatic
Respiratory: Negative Wheezes or Rales
Cardiac: Regular Rhythm and S1/S2
GI: Soft
Genito-urinary: No Costovertebral Tender
Musculoskeletal: No Edema and Other (RUE Dressing)
Neuro: AO x 3
Psych: Calm
Anticipated Discharge: Within 24 hours
Subjective/Interval History
-
Date of Service: December 08, 2023
denies pain
Objective Data
-
Labs:
Laboratory Results
12/08/23
05:01
WBC 12.4 H
Hgb 9.7 L
Hct 27.4 L
Plt Count 160 D
Sodium 134 L
Potassium 5.1
Chloride 107
Carbon Dioxide 21 L
BUN 29 H
Creatinine 1.1
Glucose 180 H
Calcium 7.3 L
Vital Signs:
Vital Signs
Temp Pulse Resp BP Pulse Ox
99.2 F 96 23 155/72 97
12/08/23 07:30 12/08/23 08:30 12/08/23 07:30 12/08/23 08:30 12/08/23 07:30
I&O
12/07/23 12/08/23 12/09/23
06:59 06:59 06:59
Intake Total 1540 / 1540 1640 / 1640
Output Total 710 / 710 550 / 550
Balance 830 / 830 1090 / 1090
--- NOTE | 2023-12-08 09:54 | W.PN.ID1 ---
Date of Service
Date of Service: December 08, 2023
Today's Communication
Continue antibiotics. See below�
Assessment / Plan
Right upper extremity pain, swelling
- s/p I&D of collection (12/04/23)
- Cx's without growth
Leukocytosis
Left lower extremity edema
Elevated ESR / CRP
Renal insufficiency
- improved
HTN
Hypothyroidism
Vocal cord cancer
Recommendations:
Extensive discussion with family regarding further treatment. At this point in time cultures have been negative, although this may be related to prior antibiotic use.
IV versus p.o. antibiotics have been offered. At this point in time they would like to proceed with an oral regimen.
Gram stain only with gram-positive cocci.
Patient overall seems improved on cefazolin.
At discharge, transition to cephalexin 500 mg p.o. every 6 hours, for an additional 14 days.
Will follow-up in the outpatient setting in approximately 2 weeks.
Continue LE compression.
����������������������������������������������������������
Chief Complaint
-: Cellulitis
Subjective / Review of Systems
Review of Systems: No Fever and No Chills
Vital Signs / Physical Exam
Vital Signs
Vital Signs
Temp Pulse Resp BP Pulse Ox
99.2 F 96 23 155/72 97
12/08/23 07:30 12/08/23 08:30 12/08/23 07:30 12/08/23 08:30 12/08/23 07:30
Physical Exam
Constitutional: No Acute Distress, Comfortable and Non-toxic
Eyes: No Conjunctival Hemorrhage and Sclera Anicteric
Cardiovascular: S1/S2; Negative S3/S4
Pulmonary: Non Labored; Negative Wheezes
Gastrointestinal: Soft and Non Tender
Extremities: Edema (3+ left lower extremity; 2+ right lower extremity) and Venous Insufficiency
Wound: Other (Right shoulder dressing in place. Previously noted strikethrough has not changed. No periwound erythema.)
Objective Data
Lab Data
Lab Results
12/08/23 05:01
12/08/23 05:01
ESR 91 mm/hour (0-20) H 12/08/23 05:01
Estimated Creat Clear 61 ml/min 12/08/23 05:01
Lactic Acid 1.5 mmol/L (0.7-2.0) 12/01/23 19:54
Total Bilirubin 0.8 mg/dl (0.2-1.3) 12/01/23 19:54
AST 49 U/L (17-59) 12/01/23 19:54
ALT 31 U/L (0-50) 12/01/23 19:54
Alkaline Phosphatase 80 U/L (38-126) 12/01/23 19:54
C-Reactive Protein 73.20 mg/L (0.0-10.00) H 12/08/23 05:01
Most recent labs reviewed.
Micro Results:
12/04/23 08:57 Anaerobic Culture - Preliminary
Arm - Right NO ANAEROBES ISOLATED
12/04/23 09:06 Tissue Culture - Final
Abscess No Growth After 72 Hours
Gram Stain - Final
12/04/23 08:57 Wound Culture - Preliminary
Arm - Right No growth
Gram Stain - Preliminary
12/01/23 19:54 Blood Culture - Final
Blood/Venous No Growth - Final Report
12/01/23 19:54 Blood Culture - Final
Blood/Venous No Growth - Final Report
12/02/23 17:31 Body Fluid Culture - Final
Joint Fluid No Growth After 72 Hours
Gram Stain - Final
12/04/23 09:54 Fungal Culture - Preliminary
Arm - Right Culture in progress.
Positive cultures are reported as soon as detected.
Final report to follow in four to five weeks.
Imaging:
12/01/2023 Duplex ultrasound left lower extremity, right upper extremity: No evidence of DVT noted.
--- NOTE | 2023-12-08 10:19 | W.DCSUMMARY ---
Discharge Summary
Discharge Data
Date of Admission: 12/01/23
Date of Discharge: 12/08/23
-
Pending Results: Yes
Hospital Course
78-year-old male with past med history of hypertension, hypothyroidism came to the hospital with right arm pain and left lower extremity swelling and pain.Patient was admitted for cellulitis. On admission CRP and ESR were elevated. Patient was
seen by infectious disease throughout hospitalization was started patient initially on IV antibiotic which was later transitioned to oral. MRI was done which showed rim-enhancing fluid collection deep to the bicep muscle extending from proximal
humerus to the distal humerus most consistent with soft tissue abscess. Patient was seen by orthopedics who performed an I&D on 12/04. Initially patient had drain which was later discontinued on 12/06. Patient culture continue to not grow anything
however it was suspected that this could likely be since patient was already on antibiotics. Since patient tolerated Ancef, infectious disease recommended patient to be put on p.o. Keflex and they will monitor patient outpatient. On this
hospitalization patient also had acute kidney injury which was likely thought was secondary to NSAID use. His creatinine over time continue to improve. Patient was also evaluated by physical therapy recommended home health. Once patient symptoms
improved, he was then discharged home with instructions to follow-up with all his physicians outpatient.
Discharge Plan
-
Patient Disposition: Home with Home Care
Discharge Diagnosis/Procedures: Right upper extremity cellulitis with suspected abscess
Left lower extremity cellulitis
Acute kidney injury on chronic kidney disease
Essential hypertension
Diet: As tolerated
Activity: As tolerated
Driving Restrictions: Not until seen by your Dr
Bathing Restrictions: None
Activity Restrictions/Additional Instructions:
Wound Care Instructions
Clean LLE with saline, pat dry, Aquaphor ointment, cover any weeping/open area with adaptic, gauze and amelia prn drainage and change daily.
Aquaphor ointment to dry skin le's, dry skin areas daily and as needed for dry skin.
Miconazole power to coccyx crease, affected areas bid.
Bilateral knee high Tubigrip (LATEX) size E from foot/ankle, size F from ankle to just below the knee with Mando wrap on top. Re-apply daily and as needed for skin check/care.
Follow up with ortho.
Fpllow up with dermatoligist.
Follow up at wound care center if needed, call for an appointment.
Referrals:
James Larsen MD [Family Provider] - in less than 1 week
Roque Dixon DO [Active] - in one to two weeks
Sathish Agarwal MD [Active] - in less than 1 week
Prescriptions:
New
miconazole nitrate [Miconazorb AF] 2 % Powder
1 applic topical BID Qty: 85 0RF
white petrolatum [Hydrophor] 42 % Ointment
1 applic topical DAILY Qty: 454 0RF
lidocaine 4 % Adhesive Patch,Medicated
1 patch topical DAILY Qty: 30 0RF
acetaminophen 325 mg Tablet
650 mg PO Q4HPRN PRN (Reason: mild pain/GARZA/temp> 100.4F) Qty: 0 0RF
oxycodone 5 mg Tablet
5 mg PO Q4HPRN PRN (Reason: severe pain) Qty: 20 0RF
tramadol 50 mg Tablet
50 mg PO Q6HPRN PRN (Reason: mild to moderate pain) Qty: 20 0RF
docusate sodium 100 mg Capsule
100 mg PO BID Qty: 60 0RF
cephalexin 500 mg capsule
500 mg PO Q6H 14 Days Qty: 56 0RF
Continued
acetaminophen [Tylenol Extra Strength] 500 mg Tablet
1,000 mg PO BIDPRN PRN (Reason: mild pain)
amlodipine 10 mg Tablet
10 mg PO QPM
valsartan-hydrochlorothiazide 320-12.5 mg Tablet
1 tab PO DAILY
calcium 100 mg Capsule
PO
Discontinued
levofloxacin 750 mg Tablet
750 mg PO QPM
Patient Comments:
12/01/2023, pt. filled this med. on 12/01/2023 and is instructed to take one tablet once a day for 10 days. Pt. took first dose today and has 9 pills remaining.
Discharge Orders:
Discharge Patient (As Directed); Ordered 12/08/23
Ordered By: Byron Campuzano
--- NOTE | 2023-12-08 11:10 | CM ---
Addendum entered by Amina Red 12/08/23 11:12:
Patient seen with family, reports no new concerns. IMM reviewed, signed, placed in patients chart. Patients present, reports she will provide transportation home. TT sent to VN to provide update on patients discharge. CM will continue to
follow for discharge planning needs.
Plan; home with VN
Original Note:
Patient seen
[2023-12-08] MEDS: ULTRAM 50 MG PO (12:10)
[2023-12-08 14:32] VITALS: BP 140/86
[2023-12-08] MEDS: NORVASC 10 MG PO (17:07)
[2023-12-08] MEDS: KEFLEX 500 MG PO (18:45)
--- NOTE | 2023-12-08 18:50 | PTCARENOTE ---
Patient discharged home with VN. Midline removed by IV team, discharge instructions reviewed with patient and spouse, both verbalized understanding. Patient expressed concern he would not get to pharmacy in time to obtain abx script, one time order
placed by MD for dose - given by RN prior to DC. Dr. Agarwal at bedside to assess patient's R arm aquacell. Extra tubigrips and cammie wraps given to patient for wound care to LEs at home. Patient transported home by , taken down to car via staff
escort and wheelchair.
--- NOTE | 2023-12-08 19:07 | W.PN.UPDATE ---
Update Note
Progress Note Update
Saw and evaluated patient this evening. Did change patient's dressing. Wound appeared well without any evidence of odessa-incisional erythema or drainage or induration. Patient still with some swelling and pain with motion of right upper extremity
but does report significant improvement compared to his admission. He does have downtrending CRP and he did have discussion today with infectious disease about transition to oral antibiotics. Advised patient to follow-up in the office in 7 to 10
days for repeat evaluation plan removal of angelica. We did go over in detail shoulder range of motion exercises. Instructed him to reach out to the office to make appointment. All questions were answered and addressed
== END 2023-12-08 18:50 | disposition home health service (06) | DRG 854 ==
LOC: 2 NORTH 23:43
PROVIDERS: Internal Medicine; Radiology Vascular & Interventional Radiology; ADMITTING PHYSICIAN Student in an Organized Health Care Education/Training Program; ATTENDING PHYSICIAN Internal Medicine; EMERGENCY PHYSICIAN Emergency Medicine; FAMILY PHYSICIAN Internal Medicine; OTHER PHYSICIAN Internal Medicine Infectious Disease; OTHER PHYSICIAN Orthopaedic Surgery
PROC: 0R9J3ZX Drainage of Right Shoulder Joint, Percutaneous Approach, Diagnostic (ICD-10-PCS; 2023-12-02)
PROC: 0JBD0ZZ Excision of Right Upper Arm Subcutaneous Tissue and Fascia, Open Approach (ICD-10-PCS; 2023-12-04)
DX: A41.9 Sepsis, unspecified organism (principal); E87.1 Hypo-osmolality and hyponatremia; L03.116 Cellulitis of left lower limb; L03.113 Cellulitis of right upper limb; N17.9 Acute kidney failure, unspecified; L02.413 Cutaneous abscess of right upper limb; N18.30 Chronic kidney disease, stage 3 unspecified; I12.9 Hypertensive chronic kidney disease with stage 1 through stage 4 chronic kidney disease, or unspecified chronic kidney disease; E03.9 Hypothyroidism, unspecified
CPT/HCPCS: 88305; 20610; 71046; 73030; 73080; 73220; 76942; 77002; 80048; 80053; 80202; 81003; 82550; 82570; 83605; 83735; 84300; 85025; 85652; 86140; 87015; 87040; 87070; 87075; 87102; 87176; 87205; 93005; 93971; 96361; 96374; 97110; 97116; 97162; 97166; 97530; 97535; 99291; A9575

== ENCOUNTER 2023-12-26 16:26 | Emergency (ER) | payer MEDICARE, OTHER, SELFPAY ==
[2023-12-26 16:28] VITALS: BP 149/93
[2023-12-26 16:46] LABS: % Basophils 0.3 % (0-2); % Eosinophils 0.8 % (0-6); % Lymphocytes 9.2 % (20.5-51.1); % Monocytes 11.8 % (1.7-9.3); % Neutrophils 76.9 % (42.2-75.2); Absolute Eosinophils 0.1 10^3/uL (0-0.7); Absolute Immature Granulocytes 0.1 10^3/uL (0-0.05); Absolute Lymphocytes 1.1 10^3/uL (1.2-3.4); Absolute Monocytes 1.4 10^3/uL (0.1-0.6); Absolute Neutrophils 9.4 10^3/uL (1.4-6.5); Hematocrit 28.2 % (39.0-52.0); Hemoglobin 10.2 g/dL (13.0-18.0); Mean Corp Hgb Conc. 36.2 g/dL (33.0-37.0); Mean Corpuscular Hgb 32.6 pg (27.0-31.0); Mean Corpuscular Volume 90.1 fL (80.0-94.0); Mean Platelet Volume 9.7 fL (7.4-10.4); Nucleated Red Blood Cells % 0 % (-); Platelet Count 361 10^3/uL (130-400); Red Blood Cell Count 3.13 10^6/uL (4.70-6.10); Red Cell Dist. Width 14.7 % (11.5-14.5); White Blood Cell Count 12.2 10^3/uL (4.8-10.8)
[2023-12-26 16:56] LABS: INR 1.21; PT 15.1 Sec (11.4-14.6)
[2023-12-26 16:57] LABS: APTT 36.9 Sec (23.4-35.0)
[2023-12-26 17:10] LABS: ALT (SGPT) 21 U/L (0-50); AST (SGOT) 25 U/L (17-59); Albumin 3.6 g/dl (3.5-5.0); Alkaline Phosphatase 64 U/L (38-126); Blood Urea Nitrogen 26 mg/dl (9-20); Carbon Dioxide 25 mmol/L (22-30); Chloride 103 mmol/L (98-107); Glucose 149 mg/dl (70-99); NT-proBNP 299 pg/ml; Potassium 3.6 mmol/L (3.5-5.1); Sodium 135 mmol/L (135-145); Total Bilirubin 0.4 mg/dl (0.2-1.3); Total Protein 7.1 g/dl (6.3-8.2); eGFR 55.53
--- NOTE | 2023-12-26 19:54 | ED.GENMED ---
History of Present Illness
General
Chief Complaint: Heart Rate Problem
Source: patient, records, spouse and family
Exam Limitations: none
Time Seen by Provider: 12/26/23 19:52
Nursing documentation reviewed up to this point in time: agreed with
Travel History
Have you had any contact with someone who has COVID-19?: No
Do you have any symptoms of coronavirus? Fever > 100 degrees, chills, cough, shortness of breath, sore throat, loss of taste or smell, muscle aches, or headache?: No
History of Present Illness
History of Present Illness:
Patient is an 78-year-old male with a history of hypertension who presents to the emergency department after being found to be tachycardic at his doctor's office with a heart rate of about 130. Patient denies any palpitations, lightheadedness,
weakness, chest pain or shortness of breath. Patient denies any GI or symptoms. Patient denies any previous history of similar episodes. Patient was recently hospitalized for an abscess of his right upper arm that was drained and has been
doing well since. This was an inadvertent finding. Patient's family doctor sent him to the emergency department for evaluation as well as a CT of the chest for PE and scan of his legs for DVT. Patient has no exertional dyspnea or dyspnea at rest.
Patient has no history of PE or DVT. Patient was recently hospitalized. Patient does not smoke. Patient is very active and exercises regularly. 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 I did speak with her and reviewed the
monitor and EKG with her.
Past History
Past History
ED Past Medical History: HTN
ED Past Surgical History: Orthopedic and Other (Parathyroid surgery)
Social History
Tobacco: Non-smoker
Alcohol: None
Drug: None
Living: with family
Employment: Other (Part-time)
Review of Systems
Review of Systems
All Other Systems: ROS reviewed and negative except as documented in HPI and ROS
Constitutional: Reports no symptoms
EENT: Reports no symptoms
Respiratory: Reports no symptoms
Cardiac: Reports no symptoms
ABD/GI: Reports no symptoms
: Reports no symptoms
Musculoskeletal: Reports no symptoms; Denies edema
Skin: Reports no symptoms
Neurological: Reports no symptoms
Hematologic/Lymphatic: Reports no symptoms
Psychiatric: Reports no symptoms
Phy Exam
Physical Exam
Physical Exam:
Physical Exam
General: No apparent distress, alert and appropriate, well nourished, well hydrated
HENT: Normocephalic, supple with no lymphadenopathy, no thyromegaly
Eyes: Clear sclera, conjuctiva without injection
Heart: Regular rhythm ranging from tachycardia to normal rate. No S3, S4. No murmur. No NVD
Lungs: No respiratory distress, no stridor, lung sounds clear and equal bilaterally
Abdomen: Soft, nontender, no organomegaly, no CVA tenderness, BS good
Neuro: Alert and oriented x 3, CN II - XII intact, no motor focality, no cerebellar dysfunction
Skin: no rash
Psychiatric: well kept. interactive and cooperative
Extremities: No edema, cyanosis, tenderness
Scores
[id number] Score for Afib Stroke Risk
Age in Years (65=0, 65-74=1, >/=75=2): > or = 75
Sex (Female=+1): Male
Congestive Heart Failure History (Yes=+1): No
Hypertension History (Yes=+1): Yes
Stroke/TIA/Thromboembolism History (Yes=+2): No
Vascular Disease History (Yes=+1): No
Diabetes Mellitus (Yes=+1): No
Score: 3
Anticoagulation Recommendations: Recommend anticoagulation (as validated in nonvalvular fib)
Course
Orders/Labs/Results
Orders:
Orders
12/26/23 16:31
Electrocardiogram (*1) Urgent
Reason for Study: Tachycardia
EKG- Treatment ONCE
12/26/23 16:39
BNP [NT-proBNP] Urgent
Complete Blood Count/With Diff Urgent
Comprehensive Metabolic Panel Urgent
Protime/PTT Urgent
TSH Reflex To Free T4 Urgent
Comment: ADDON
Troponin I Urgent
Comment: ADDON
12/26/23 20:29
D-Dimer Urgent
12/26/23 20:31
Troponin I Urgent
12/26/23 20:39
Apixaban [Eliquis] 5 mg PO NOW STA
Metoprolol Xl [Toprol Xl] 25 mg PO NOW STA
12/26/23 21:32
CT Chest Pe Study Urgent
Comment:
Reason For Exam: tachycardia with elevated ddimer and recent hospit
Abnormal Lab Results
12/26/23 12/26/23
16:39 20:29
WBC 12.2 H 10^3/uL
(4.8-10.8)
RBC 3.13 L 10^6/uL
(4.70-6.10)
Hgb 10.2 L g/dL
(13.0-18.0)
Hct 28.2 L %
(39.0-52.0)
MCH 32.6 H pg
(27.0-31.0)
RDW 14.7 H %
(11.5-14.5)
Abs Immat Gran (auto) 0.1 H 10^3/uL
(0-0.05)
Absolute Neuts (auto) 9.4 H 10^3/uL
(1.4-6.5)
Absolute Lymphs (auto) 1.1 L 10^3/uL
(1.2-3.4)
Absolute Monos (auto) 1.4 H 10^3/uL
(0.1-0.6)
Immature Gran % 1.0 H %
(0-0.5)
Neutrophils % 76.9 H %
(42.2-75.2)
Lymphocytes % 9.2 L %
(20.5-51.1)
Monocytes % 11.8 H %
(1.7-9.3)
PT 15.1 H Sec
(11.4-14.6)
APTT 36.9 H Sec
(23.4-35.0)
D-Dimer 1.92 H ug/mlFEU
(0.00-0.50)
BUN 26 H mg/dl
(9-20)
Glucose 149 H mg/dl
(70-99)
12/26/23 16:39
12/26/23 16:39
Vital Signs
Initial and Last Documented VS:
Initial Vital Signs
Temp Pulse Resp BP Pulse Ox
98.1 F 134 18 149/93 94
12/26/23 16:28 12/26/23 16:28 12/26/23 16:28 12/26/23 16:28 12/26/23 16:28
Last Documented Vital Signs
Temp Pulse Resp BP Pulse Ox
98.1 F 80 18 118/79 94
12/26/23 16:28 12/26/23 20:53 12/26/23 16:28 12/26/23 20:53 12/26/23 16:28
*Radiology
Radiology exam reviewed: radiology read reviewed (No pulmonary embolus)
*Pulse Oximetry
Patient hypoxic: no
*EKG
Interpreted by ED Provider?: Yes
EKG Intrepretation Date: 12/26/23
EKG Intrepretation Time: 20:51
Interpretation: abnormal
Comparison EKG: no changes
Heart Rate: 85
Rate: normal
Rhythm: sinus and PAC's
[place]: normal axis
Interval: normal interval
QRS Pattern: right bundle branch block
Ischemia: no ischemia
*Manager Film Interpretation
Rate: other (Varies from 80-130)
Interpretation: abnormal
Heart Rate: 84
Rhythm: sinus, a-fib and atrial flutter
*Critical Care Note
Total Time (30-74mins, 75-104mins- exclusive of procedures): Not Applicable
Update Note
Update Note:
Patient's primary care physician wanted a CT of the chest and an ultrasound of the legs looking for clots. Clinically this does not appear to be the case however we will check a D-dimer before committing the patient to excessive radiation that is
unnecessary. Will start the patient on Lopressor and Eliquis. Patient's [id number] is 3 given his age and hypertension. Patient will be seen by cardiology tomorrow
ED Attending Note
-
Portions of this chart may have been created with voice recognition software.� Occasional wrong word or��sound alike� substitutions may have occurred due to the inherent limitations of voice recognition software.
Discharge Plan
Departure
Patient Disposition: Home (Routine Discharge)
Date of Disposition: 12/26/23
Time of Disposition: 22:33
Patient with high blood pressure during this ER visit?: No
Condition: Good
Covid-19: Not Applicable
Discharge Problem:
Paroxysmal atrial fibrillation
Instructions: Atrial Fibrillation (DC), BLOOD PRESSURE
Prescriptions:
New
Eliquis 5 mg tablet
5 mg PO BID Qty: 60 0RF
metoprolol succinate [Toprol XL] 25 mg tablet extended release 24 hr
25 mg PO DAILY Qty: 30 0RF
No Action
acetaminophen [Tylenol Extra Strength] 500 mg Tablet
1,000 mg PO BIDPRN PRN (Reason: mild pain)
amlodipine 10 mg Tablet
10 mg PO QPM
valsartan-hydrochlorothiazide 320-12.5 mg Tablet
1 tab PO DAILY
calcium 100 mg Capsule
PO
miconazole nitrate [Miconazorb AF] 2 % Powder
1 applic topical BID Qty: 85 0RF
white petrolatum [Hydrophor] 42 % Ointment
1 applic topical DAILY Qty: 454 0RF
lidocaine 4 % Adhesive Patch,Medicated
1 patch topical DAILY Qty: 30 0RF
oxycodone 5 mg Tablet
5 mg PO Q4HPRN PRN (Reason: severe pain) Qty: 20 0RF
tramadol 50 mg Tablet
50 mg PO Q6HPRN PRN (Reason: mild to moderate pain) Qty: 20 0RF
docusate sodium 100 mg Capsule
100 mg PO BID Qty: 60 0RF
cephalexin 500 mg capsule
500 mg PO Q6H 14 Days Qty: 56 0RF
Referrals:
James Larsen MD [Family Provider] - Follow up in 5-7 days
Activity Restrictions/Additional Instructions:
Continue present medications. 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 You are being started on Eliquis 5 mg twice a day as well as Toprol XL 25 mg a day
Interventions
Interventions:
*Risk Screen - Suicide Last Done: 12/26/23 16:28
*General Assessment Last Done: 12/26/23 16:28
*Neglect/Abuse Screening Last Done: 12/26/23 16:28
ED- Fall Risk Assessment Last Done: 12/26/23 20:57
*ED COVID-19 Vaccine History Last Done: 12/26/23 16:28
ED- Cardiac Assessment Last Done: 12/26/23 20:57
[2023-12-26 20:04] VITALS: BP 118/79
[2023-12-26 20:12] VITALS: BMI 29.2
[2023-12-26 20:42] LABS: Troponin I < 0.012 ng/ml
[2023-12-26] MEDS: TOPROL XL 25 MG PO (20:53)
[2023-12-26] MEDS: ELIQUIS 5 MG PO (20:54)
[2023-12-26 21:00] VITALS: BP 128/78
[2023-12-26 21:03] LABS: Troponin I < 0.012 ng/ml
[2023-12-26 21:13] LABS: D-Dimer 1.92 ug/mlFEU (0.00-0.50)
[2023-12-26 22:00] VITALS: BP 131/75
--- NOTE | 2023-12-26 22:30 | EDRN ---
Updated on results and resting comfortably
== END 2023-12-26 23:14 | disposition home or self-care (01) ==
LOC: EMR 16:26
PROVIDERS: Emergency Medicine; EMERGENCY PHYSICIAN Emergency Medicine; FAMILY PHYSICIAN Internal Medicine
DX: I10 Essential (primary) hypertension (principal); I48.0 Paroxysmal atrial fibrillation
CPT/HCPCS: 99285; 71275; 80053; 83880; 84443; 84484; 85025; 85379; 85610; 85730; 93005; Q9967

== ENCOUNTER → 2024-01-13 13:59 | Outpatient (REF) | payer MEDICARE, OTHER, SELFPAY | LOC: DHCBC HW 13:59 | PROVIDERS: ATTENDING PHYSICIAN Internal Medicine Cardiovascular Disease; FAMILY PHYSICIAN Internal Medicine | DX: I10 Essential (primary) hypertension (principal); R06.09 Other forms of dyspnea; I45.10 Unspecified right bundle-branch block | CPT/HCPCS: 93306 ==

== ENCOUNTER → 2024-03-05 | Outpatient (REF) | payer MEDICARE, OTHER, SELFPAY | LOC: DHSLP | PROVIDERS: ATTENDING PHYSICIAN Internal Medicine; FAMILY PHYSICIAN Internal Medicine | DX: G47.33 Obstructive sleep apnea (adult) (pediatric) (principal) | CPT/HCPCS: 95800 ==

== ENCOUNTER → 2024-03-21 08:17 | Outpatient (REF) | payer MEDICARE, OTHER, SELFPAY | LOC: RAD 08:17 | PROVIDERS: ATTENDING PHYSICIAN Internal Medicine Cardiovascular Disease; FAMILY PHYSICIAN Internal Medicine; OTHER PHYSICIAN Internal Medicine Nephrology; REFERRING PHYSICIAN Student in an Organized Health Care Education/Training Program | DX: R60.0 Localized edema (principal) | CPT/HCPCS: 93970 ==

== ENCOUNTER → 2025-02-08 07:59 | Outpatient (REF) | payer MEDICARE, OTHER, SELFPAY | LOC: HWRAD 07:59 | PROVIDERS: ATTENDING PHYSICIAN Internal Medicine Cardiovascular Disease; FAMILY PHYSICIAN Internal Medicine | DX: R09.89 Other specified symptoms and signs involving the circulatory and respiratory systems (principal); I65.23 Occlusion and stenosis of bilateral carotid arteries; I77.810 Thoracic aortic ectasia | CPT/HCPCS: 71250 ==